=== PATIENT | male | born 1990 | race Caucasian/White ===

== ENCOUNTER 2023-04-25 09:19 | Inpatient (IN) ==
[2023-04-25 10:28] LABS: Basophils # (auto) 0.04 K/uL (0.00-0.20); Basophils % (auto) 0.4 %; Eosinophils # (auto) 0.07 K/uL (0.00-0.50); Eosinophils % (auto) 0.8 %; Hematocrit (blood only) 43.8 % (42.0-52.0); Immature Granulocytes # (auto) 0.02 K/uL (0.01-0.20); Immature Granulocytes % (auto) 0.2 %; Lymphocytes # (auto) 0.78 K/uL (1.20-3.40); Lymphocytes % (auto) 8.6 %; Mean Corpuscular Hemoglobin 32.3 pg (25.0-34.0); Mean Corpuscular Hgb Conc 34.2 g/dL (32.0-36.0); Mean Corpuscular Volume 94.4 fL (80.0-100.0); Mean Platelet Volume 10.2 fL (9.4-12.4); Monocytes # (auto) 0.77 K/uL (0.11-0.59); Monocytes % (auto) 8.4 %; Neutrophils # (auto) 7.44 K/uL (1.40-6.50); Neutrophils % (auto) 81.6 %; Platelet Count 285 K/uL (130-400); RDW Coefficient of Variation 12.1 % (11.5-14.5); Red Blood Count 4.64 M/uL (4.70-6.10); White Blood Count 9.12 K/ul (4.8-10.8)
[2023-04-25] MEDS ORDERED: ACETAMINOPHEN 1,000 MG/100 ML VIAL IV STA (10:30)
[2023-04-25] MEDS ORDERED: SODIUM CHLORIDE 0.9% 1,000 ML IV ONE (10:30)
[2023-04-25] MEDS ORDERED: KETOROLAC TROMETHAMINE 15 MG/ML VIAL IV STA (10:30)
[2023-04-25 10:55] LABS: Appearance Urine Clear (Clear); Bilirubin Urine Negative (Negative); Blood Urine Negative (Negative); Color Urine Yellow; Glucose Urine UA Negative (Negative); Ketones Urine Negative (Negative); Leukocyte Esterase Urine Negative (Negative); Nitrite Urine Negative (Negative); Protein Urine Negative (Negative); Specific Gravity Urine 1.021 (1.000-1.030); Urobilinogen Urine Negative (Negative)
[2023-04-25 10:55] LABS: Albumin Globulin Ratio 1.6 (0.9-2); Albumin Level 4.5 gm/dl (3.4-5.0); BUN Creatinine Ratio 10.8 (10-20); Bilirubin,Total 0.6 mg/dl (0.2-1.0); Calcium 9.5 mg/dl (8.6-10.3); Creatinine Clr Calc Pharmacy 95.9 ml/min; Est GFR (African American) 99.2 ml/min; Est GFR (Non-African American) 85.6 ml/min; Globulin 2.9 gm/dl (2.5-4.0); Potassium 4.1 mmol/L (3.5-5.1); Total Protein 7.4 gm/dl (6.0-8.3)
[2023-04-25] MEDS ORDERED: OPTIRAY 320 100ml IV ONE (12:22)
--- NOTE | 2023-04-25 12:34 | CT Scan Report ---
CT SCAN OF THE ABDOMEN AND PELVIS WITH IV CONTRAST CLINICAL HISTORY: Left lower quadrant abdominal pain COMPARISON STUDY: No priors. TECHNIQUE: Following the IV administration of 93 cc of Optiray 320, CT scan of the abdomen and pelvi s is performed from the lung bases to the proximal femora. Images are reviewed in the axial, sagittal , and coronal planes. IV contrast was administered without complication. A dose lowering technique wa s utilized adhering to the principles of ALARA. CT DOSE: 1076.48 mGy.cm FINDINGS: Lung bases: The heart is normal in size and without pericardial effusion. There is trace right pleura l effusion and dependent atelectasis. There is a small hiatal hernia. Liver: The contrast-enhanced liver is normal in size, contour, and attenuation. There is no intrahepa tic biliary ductal dilatation. The hepatic veins and portal veins are patent. Gallbladder: Surgically absent noting clips in the gallbladder fossa. Spleen: Normal in size and attenuation. Pancreas: Unremarkable. Adrenal glands: Unremarkable. Kidneys: The contrast enhanced kidneys are normal in size and without hydronephrosis. The kidneys enh ance symmetrically. Abdominal vasculature: The abdominal aorta is normal in course and caliber. Bowel: There is mild to moderate colonic diverticulosis. There is wall thickening with pericolonic in flammation and fluid involving mid to distal descending colon consistent with acute diverticulitis. T here are tiny foci of intraperitoneal free air adjacent to the descending colon at this site. No orga nized/drainable fluid collection is seen to indicate abscess. No bowel obstruction is seen. The appen gt is not identified and reported surgically absent. Peritoneum: There are tiny foci of intraperitoneal free air adjacent to the left colon as discussed a yonathan. No additional foci of free air are seen below the diaphragm. There is trace free fluid in the p gregg. There is a fat-containing umbilical hernia. Lymphadenopathy: None. Pelvic viscera: The bladder, prostate, and seminal vesicles are normal as visualized. Skeletal structures: No lytic or blastic lesions are seen. IMPRESSION: 1. Acute diverticulitis of the mid to distal descending colon as above. 2. There are tiny foci of intraperitoneal free air adjacent to the descending colon. No organized/heron inable fluid collection is seen to indicate abscess. 3. Trace right pleural effusion. 4. Additional findings as above. ACT 112: Negative or not required by law. Electronically signed by: Manuel Oviedo M.D. 04/25/2023 12:32 PM
[2023-04-25] MEDS ORDERED: MoRPHine SULFATE 4 MG/ML 1 ML CARP\\VIAL IV STA (12:39)
[2023-04-25] MEDS ORDERED: ONDANSETRON INJ 2 MG/ML 2 ML VIAL IV STA (12:39)
[2023-04-25] MEDS ORDERED: PIPERACILLIN/TAZOBACTAM 4.5 GM/100 ML BAG IV ONE (12:40)
--- NOTE | 2023-04-25 12:40 | Emergency Department Note ---
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 He reports he was doing well since then until today. He denies any fevers, cough, congestion, diarrhea, constipation or urinary symptoms. On my evaluation the patient is no acute distress, afebrile with stable vital signs. He does have mild tenderness of the left lower quadrant. There is no contralateral tenderness, guarding or rebound. WBC, within normal limits with neutrophil predominance but no left shift. H/H and platelets within normal limits. Chemistry without metabolic acidosis. Electrolytes without significant abnormality. LFTs mildly elevated with AST and ALT 70 and 89, respectively, nonspecific though the patient feels he may have had this in the past. Lipase not elevated. UA without evidence of infection. CT of the abdomen pelvis demonstrates evidence of diverticulitis with wall thickening with pericolonic inflammation and fluid involving the mid to distal descending colon consistent with acute diverticulitis. Note is made of a tiny foci of intraperitoneal free air adjacent to the descending colon at the site. There is no organized drainable fluid collection to indicate abscess. There is no additional foci of free air seen below the diaphragm. Trace free fluid is seen within the pelvis. The signs were described to the patient and he feels that this was similarly described when he was admitted to [facility] after initially presenting to [place] emergency department. Given the persistence of the patient diverticulitis in the setting of recurrence of his pain patient agrees with plan for admission for IV antibiotics. Case discussed with Victoria Mercer general surgery ACADEMIC AFFAIRS COORDINATOR with Dr. Peterson, general surgery. Agrees with admission and IV ABX. Case was discussed with Dr. Stanley, [facility] hospitalist, who will evaluate the patient for admission. Triage Nursing notes reviewed and agree them. Prior/external medical records reviewed Vital Signs: reviewed Differential diagnosis: Appendicitis, testicular torsion, infections, diverticulitis, UTI, obstruction, mesenteric ischemia, aortic pathology, inflammatory bowel disease, renal colic, PUD, pancreatitis, biliary pathology, hernia, volvulus, constipation, as well as other pathologies. ER treatment provided: See below. Diagnostics interpreted by me: Cardiac Monitoring: An order for continuous cardiac monitoring was placed and demonstrated normal sinus rhythm, 70 bpm, no ectopy. Laboratory studies: See below Imaging studies: See below Consultation(s): Case was discussed with Dr. Stanley, [facility] hospitalist, who will evaluate the patient for admission. 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 He reports he was doing well since then until today. He denies any fevers, cough, congestion, diarrhea, constipation or urinary symptoms. ROS: See above HPI for pertinent positives & negatives. A total of 10 systems reviewed and were otherwise negative. VITALS:See Below PHYSICAL EXAMINATION: GENERAL: Awake, alert, well-appearing, in no distress HENT: Normocephalic, atraumatic. Oropharynx with dry mucous membranes and otherwise unremarkable. EYES: Normal conjunctiva. Sclera non-icteric. NECK: Supple. No nuchal rigidity. FROM. No JVD. RESPIRATORY: Clear to auscultation. CARDIAC: Regular rate, normal rhythm. Extremities warm and well perfused. Pulses equal. ABDOMEN: Soft, non-distended. Mild tenderness of the left lower quadrant. There is no contralateral tenderness, guarding or rebound. RECTAL: Deferred. MUSCULOSKELETAL: Chest examination reveals no tenderness. The back is symmetrical on inspection without obvious abnormality. There is no CVA tenderness to palpation. No joint edema. LOWER EXTREMITIES: Calves are equal size bilaterally and non-tender. No edema. No discoloration. NEURO: Normal sensorium. No sensory or motor deficits noted. SKIN: No rash or jaundice noted. Boston Mcknight MD Past Med/Surg History Medical History Bowel obstruction As as child with surgical correction per patient. 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 No significant medical problems Surgical History History of appendectomy History of cholecystectomy Family History Other Family history non-contributory Social History Smoking Status: Current every day smoker Tobacco Type: Smokeless Tobacco (Dip or Chew) Smoking End Date: 04/25/2023 0700h; Second Hand Exposure: No; Do You Dip or Chew Tobacco: Yes; Tobacco Cessation Education Requested by Patient: Yes Hx Alcohol Use: Yes Alcohol type: beer Hx Substance Use: Yes Last Used Substance: Unknown Preferred Language: Turkmen Communication Ability: Effective Visual Impairment: No Limitations Hearing Ability: Normal Beliefs That Will Affect Care: None Current Living Situation: Family current occupational status: employed Feels Safe at Home: Yes Safety Concerns: Feels Safe At This Time Assistive Devices: None Allergies Allergies Allergy/AdvReac Type Severity Reaction Status Date / Time No Known Allergies Allergy Unverified 11/20/17 15:41 Home Meds Home Medications Medication Instructions Recorded Confirmed No Known Home Medications 04/25/23 04/25/23 Results & Data (ED) Vital Signs Vital Signs - 24 hr 04/25/23 09:30 04/25/23 10:15 04/25/23 10:16 Temperature 36.8 C Temperature Source Temporal Artery Scan Pulse Rate 97 H 85 Pulse Rate [Right Finger] 79 Pulse Rhythm [Right Finger] Pulse Strength [Right Finger] Respiratory Rate 16 20 Respiratory Effort / Characteristics Non-Labored Spontaneous Respiratory Depth Normal Normal Blood Pressure 126/74 Blood Pressure [Right Arm] 119/84 Blood Pressure Mean 91 Blood Pressure Mean [Right Arm] 95 Pulse Oximetry 99 96 Oxygen Delivery Method Room Air Room Air Sepsis Recent Fever Within 48 Hours No Sepsis New/Unexplained Change in Mental Status No Sepsis Action Taken by Nursing No Action Required 04/25/23 11:34 04/25/23 13:02 04/25/23 14:24 Temperature Temperature Source Pulse Rate 61 Pulse Rate [Right Finger] 64 72 Pulse Rhythm [Right Finger] Regular Regular Pulse Strength [Right Finger] Normal Normal Respiratory Rate 17 19 Respiratory Effort / Characteristics Non-Labored Spontaneous Non-Labored Spontaneous Respiratory Depth Normal Normal Blood Pressure Blood Pressure [Right Arm] 115/70 120/80 Blood Pressure Mean Blood Pressure Mean [Right Arm] 85 93 Pulse Oximetry 99 97 Oxygen Delivery Method Room Air Room Air Sepsis Recent Fever Within 48 Hours Sepsis New/Unexplained Change in Mental Status Sepsis Action Taken by Nursing Laboratory Data Attestation: I reviewed the patient's lab results. 04/25/23 09:58 04/25/23 09:58 Lab Results 04/25/23 04/25/23 04/25/23 Range/Units 09:58 09:58 10:45 WBC 9.12 (4.8-10.8) K/ul RBC 4.64 L (4.70-6.10) M/uL Hgb 15.0 (14.0-18.0) g/dl Hct 43.8 (42.0-52.0) % MCV 94.4 (80.0-100.0) fL MCH 32.3 (25.0-34.0) pg MCHC 34.2 (32.0-36.0) g/dL RDW Std Deviation 42.0 (36.4-46.3) fL RDW Coeff of Chastity 12.1 (11.5-14.5) % Plt Count 285 (130-400) K/uL MPV 10.2 (9.4-12.4) fL Immature Gran % (Auto) 0.2 % Neut % (Auto) 81.6 % Lymph % (Auto) 8.6 % [place] % (Auto) 8.4 % Eos % (Auto) 0.8 % Baso % (Auto) 0.4 % Neut # (Auto) 7.44 H (1.40-6.50) K/uL Lymph # (Auto) 0.78 L (1.20-3.40) K/uL [place] # (Auto) 0.77 H (0.11-0.59) K/uL Eos # (Auto) 0.07 (0.00-0.50) K/uL Baso # (Auto) 0.04 (0.00-0.20) K/uL Immature Gran # (Auto) 0.02 (0.01-0.20) K/uL Sodium 140 (136-145) mmol/L Potassium 4.1 (3.5-5.1) mmol/L Chloride 107 (98-107) mmol/L Carbon Dioxide 26 (21-32) mmol/L Anion Gap 7 (3-11) BUN 12 (6-23) mg/dl Creatinine 1.11 (0.6-1.4) mg/dl Est Cr Clr Drug Dosing 95.9 ml/min Est GFR ( Amer) 99.2 ml/min Est GFR (Non-Af Amer) 85.6 ml/min BUN/Creatinine Ratio 10.8 (10-20) Glucose 110 H (70-99(Fasting)) mg/dl Calcium 9.5 (8.6-10.3) mg/dl Total Bilirubin 0.6 (0.2-1.0) mg/dl AST 70 H (13-39) U/L ALT 89 H (7-52) U/L Alkaline Phosphatase 101 (34-104) U/L Total Protein 7.4 (6.0-8.3) gm/dl Albumin 4.5 (3.4-5.0) gm/dl Globulin 2.9 (2.5-4.0) gm/dl Albumin/Globulin Ratio 1.6 (0.9-2) Lipase 17 (11-82) U/L Urine Color Yellow Urine Appearance Clear (Clear) Urine pH 5.0 (4.5-7.5) Ur Specific [place] 1.021 (1.000-1.030) Urine Protein Negative (Negative) Urine Glucose (UA) Negative (Negative) Urine Ketones Negative (Negative) Urine Blood Negative (Negative) Urine Nitrite Negative (Negative) Urine Bilirubin Negative (Negative) Urine Urobilinogen Negative (Negative) Ur Leukocyte Esterase Negative (Negative) Administered Medications Hydromorphone HCl (Hydromorphone Inj 0.5 Mg/0.5 Ml Syr) 0.5 mg IV Q3H PRN PRN Reason: Moderate Pain (4,5,6) on NRS Stop: 05/09/23 14:27 Last Admin: 04/25/23 15:02 Dose: 0.5 mg Documented By: DOROTHEA Hydromorphone HCl (Hydromorphone Inj 1 Mg/Ml Syringe) 1 mg IV Q3H PRN PRN Reason: Severe Pain (7,8,9,10) on NRS Stop: 05/09/23 14:27 Last Admin: 04/25/23 23:06 Dose: 1 mg Documented By: Admin: 04/25/23 19:03 Dose: 1 mg Documented By: REGGIE Piperacillin Sod/Tazobactam (Sod 4.5 gm/ Dextrose) 100 mls @ 25 mls/hr IV Q8H MITRA; Protocol Stop: 05/05/23 17:59 Last Infusion: 04/25/23 21:52 Dose: 0 mls/hr Documented By: Admin: 04/25/23 18:22 Dose: 25 mls/hr Documented By: Lactated Ringer's (Lr) 1,000 mls @ 125 mls/hr IV .Q8H MITRA Stop: 05/25/23 14:29 Last Admin: 04/25/23 23:07 Dose: 125 mls/hr Documented By: Infusion: 04/25/23 23:05 Dose: 0 mls/hr Documented By: Admin: 04/25/23 14:59 Dose: 125 mls/hr Documented By: DOROTHEA Nicotine (Nicotine 21 Mg/24 Hr Tdsy) 21 mg TD QAM MITRA Stop: 05/25/23 18:44 Last Admin: 04/25/23 19:40 Dose: 21 mg Documented By: LIZETTE Discontinued Medications Sodium Chloride (Nss) 1,000 mls @ 999 mls/hr IV .Q1H1M ONE Stop: 04/25/23 11:30 Last Infusion: 04/25/23 12:00 Dose: 0 mls/hr Documented By: Admin: 04/25/23 10:43 Dose: 999 mls/hr Documented By: CARISA Acetaminophen (Ofirmev) 1,000 mg in 100 mls @ 400 mls/hr IV NOW STA Stop: 04/25/23 10:44 Last Infusion: 04/25/23 12:00 Dose: 0 mls/hr Documented By: Admin: 04/25/23 10:44 Dose: 400 mls/hr Documented By: CARISA Piperacillin Sod/Tazobactam Sod (Zosyn) 4.5 gm in 100 mls @ 200 mls/hr IV NOW ONE Stop: 04/25/23 13:09 Last Infusion: 04/25/23 15:26 Dose: 0 mls/hr Documented By: Admin: 04/25/23 13:02 Dose: 200 mls/hr Documented By: DOROTHEA Sodium Chloride (Nss) 1,000 mls @ 125 mls/hr IV .Q8H MITRA Stop: 05/25/23 12:44 Last Infusion: 04/25/23 19:02 Dose: 0 mls/hr Documented By: Infusion: 04/25/23 14:59 Dose: 125 mls/hr Documented By: Admin: 04/25/23 13:00 Dose: 125 mls/hr Documented By: DOROTHEA Ioversol (Optiray 320 100ml) 93 ml IV ONCE ONE Stop: 04/25/23 12:23 Last Admin: 04/25/23 12:23 Dose: 93 ml Documented By: SARAH BETH Ketorolac Tromethamine (Ketorolac Tromethamine 15 Mg/Ml Vial) 15 mg IV NOW STA Stop: 04/25/23 10:31 Last Admin: 04/25/23 10:43 Dose: 15 mg Documented By: CARISA Morphine Sulfate (Morphine Sulfate 4 Mg/Ml 1 Ml Carp\Vial) 4 mg IV NOW STA Stop: 04/25/23 12:40 Last Admin: 04/25/23 12:57 Dose: 4 mg Documented By: DOROTHEA Ondansetron HCl (Ondansetron Inj 2 Mg/Ml 2 Ml Vial) 4 mg IV NOW STA Stop: 04/25/23 12:40 Last Admin: 04/25/23 12:56 Dose: 4 mg Documented By: DOROTHEA Imaging Data Radiologist's Impression: Abdomen/Pelvis CT 04/25/23 10:30 CT SCAN OF THE ABDOMEN AND PELVIS WITH IV CONTRAST CLINICAL HISTORY: Left lower quadrant abdominal pain COMPARISON STUDY: No priors. TECHNIQUE: Following the IV administration of 93 cc of Optiray 320, CT scan of the abdomen and pelvis is performed from the lung bases to the proximal femora. Images are reviewed in the axial, sagittal, and coronal planes. IV contrast was administered without complication. A dose lowering technique was utilized adhering to the principles of ALARA. CT DOSE: 1076.48 mGy.cm FINDINGS: Lung bases: The heart is normal in size and without pericardial effusion. There is trace right pleural effusion and dependent atelectasis. There is a small hiatal hernia. Liver: The contrast-enhanced liver is normal in size, contour, and attenuation. There is no intrahepatic biliary ductal dilatation. The hepatic veins and portal veins are patent. Gallbladder: Surgically absent noting clips in the gallbladder fossa. Spleen: Normal in size and attenuation. Pancreas: Unremarkable. Adrenal glands: Unremarkable. Kidneys: The contrast enhanced kidneys are normal in size and without hydronephrosis. The kidneys enhance symmetrically. Abdominal vasculature: The abdominal aorta is normal in course and caliber. Bowel: There is mild to moderate colonic diverticulosis. There is wall thickening with pericolonic inflammation and fluid involving mid to distal descending colon consistent with acute diverticulitis. There are tiny foci of intraperitoneal free air adjacent to the descending colon at this site. No organized/drainable fluid collection is seen to indicate abscess. No bowel obstruction is seen. The appendix is not identified and reported surgically absent. Peritoneum: There are tiny foci of intraperitoneal free air adjacent to the left colon as discussed above. No additional foci of free air are seen below the diaphragm. There is trace free fluid in the pelvis. There is a fat-containing umbilical hernia. Lymphadenopathy: None. Pelvic viscera: The bladder, prostate, and seminal vesicles are normal as visualized. Skeletal structures: No lytic or blastic lesions are seen. IMPRESSION: 1. Acute diverticulitis of the mid to distal descending colon as above. 2. There are tiny foci of intraperitoneal free air adjacent to the descending colon. No organized/drainable fluid collection is seen to indicate abscess. 3. Trace right pleural effusion. 4. Additional findings as above. ACT 112: Negative or not required by law. Electronically signed by: Manuel Oviedo M.D. 04/25/2023 12:32 PM Discharge Plan Visit Data Chief Complaint: Abdominal Pain Stated Complaint: POSSIBLE DIVERTICULITIS ED Provider: Boston Mcknight Discharge Problem: Left lower quadrant abdominal pain, Transaminitis, Diverticulitis of colon with perforation Patient Disposition: Admitted As Inpatient Discharge Instructions Interventions: ED Discharge Assessment Last Done: 04/25/23 18:30
[2023-04-25] MEDS ORDERED: SODIUM CHLORIDE 0.9% 1,000 ML IV SCH (12:45)
--- NOTE | 2023-04-25 13:46 | History & Physical Report ---
Date of Service April 25, 2023 Assessment & Plan (1) Diverticulitis: Plan: Acute recurrent/incompletely treated diverticulitis with microperforation Patient treated at [facility] for diverticulitis 2 weeks ago, was on Zosyn for 2 days and clinically improved and then was discharged on Levaquin/Flagyl. His symptoms completely resolved and he completed a 10-day course of antibiotics, and then had recurrent left lower quadrant abdominal pain day before admission with increased pain to 8/10 which is more severe than his initial CT shows acute diverticulitis with small foci ipsilateral gas consistent with microperforation No leukocytosis on admission Continue Zosyn 4.5 g every 8 hours N.p.o. Patient does not have contralateral gas, large perforation, or abscess indicating surgical management at this time. Surgery aware of patient, okay for medical management at this He has past abdominal surgical history, had a volvulus repair during childhood and 8 years ago had a lysis of adhesions for pain; he did not have a bowel obstruction that led to his lysis. Additionally has had cholecystectomy and appendectomy. He is high risk for bowel obstruction, and both BM/flatus have stopped since yesterday afternoon. No bowel obstruction is noted on CT, morning KUB ordered for tomorrow to follow for ileus vs developing sbo. NPO. No nausea/vomiting CBC/BMP daily Nontoxic, hemodynamically stable on admission Tylenol, hydromorphone on-call for pain control. Transaminitis is mild, if up trends discontinue Tylenol (2) Transaminitis: Plan: Mild transaminitis of 70/89 Patient has 2 beers per day, did have a drink yesterday. Denies any binge drinking Denies any Tylenol use in the last 1-2 weeks Liver is normal in appearance on CT ? 2/2 Levaquin, fluoroquinolones deferred. We will continue Zosyn and target Augmentin as stepdown to Trend CMP (3) History of appendectomy: (4) History of cholecystectomy: Plan DVT prophylaxis: Low risk, SCDs/ambulate Diet: N.p.o. Disposition: Medical/surgical CODE STATUS: Full History of Present Illness Primary Care Provider: NO PCP Blu is a 33-year-old man with a past medical history of SBO as a child, and recently with diverticulitis treated in [facility] 1 week ago after 2-day inpatient stay with microperforation and subsequently discharged on oral antibiotics. Record review Repeat abdominal CT shows acute diverticulitis of mid to distal descending colon , tiny foci of intraperitoneal free air adjacent to the descending colon. This is/normal/at site of diverticulitis consistent with microperforation; patient reports this was present at [facility]. No contralateral free air or abscess is appreciated. Patient was prescribed levofloxacin and Flagyl 10-day course on 04/07 which was completed 04/17 Transaminitis with normal-appearing liver on CT. Patient's only medication was antibiotics Levaquin/Flagyl. Will defer fluoroquinolone use due to rare incidence of hepatotoxicity. Patient is normotensive and presentation is not consistent with endorgan ischemia. Per patient Pt reports 2-3 weeks ago had abdominal pain, was seein in [place] and then admitting to [facility] for diverticulitis with perforatin. Was dc/ed after 2 days with oral antibiotics. Took all abx as direct. N oabx allergies Last night pain recurrent, tried to go to work today and pain was much worse than last time and came in for re-evaluatin. No fevers, chills. 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 No nausea or vomiting NO chest pain or chest pressure. Currently abdominal pain is ~7-8/10 after morphine, was morphine earlier brought it down to a 4-5 from a 9 earlier this morning. NO pain at all 2 days ago, pain all started last night Last bowel movement was yesterday. No blood/melena. Formed/brown +Feeling of strong gas pain in low abdomen, has not been passing gas since yesterday. Last BM was ~12-1pm yesterday, flatus ~3pm then stopped. MEdHx/SHX: Endorses hx of bowel obstruction as a kid due to a 'bowel twisting.' Had surgery which corrected this at age 11. Then did nto remove any bowel 'just untwisted it' and took out the appendix and gallbladder. Procedure was performed at [facility]. 8 years ago had to have lysis of adhesions due to pain without SBO, gallbladder was removed at that time as well. Current pain is very different than either of those prior pains, and worse in intensity No other surgeries. No other medical problems No daily medicatins Has nto taken any OTC medicatins for pain EtoH 1-2 beers per day, 2x drinks last night. Denies binge drinking. Hasn't seen a PCP recently. Saw Nancy Willett in [place] several years ago, needs to re-establish. Medical History: Reviewed Medications: Reviewed Surgical History: Reviewed Family history: Reviewed Allergies: Reviewed Social History: Reviewed. ETOH 2 beer daily. Uses chew. Has been eatin ga lot of sunflower seeds to quit chew. Code Status: Full Code Allergies Allergy/AdvReac Type Severity Reaction Status Date / Time No Known Allergies Allergy Unverified 11/20/17 15:41 Home Medications Medication Instructions Recorded Confirmed Type No Known Home Medications 04/25/23 04/25/23 History Past Med/Surg History Medical History (Updated 04/25/23 @ 14:39 by Rocael Stanley MD) Bowel obstruction As as child with surgical correction per patient. 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 No significant medical problems Surgical History (Updated 04/25/23 @ 14:36 by Rocael Stanley MD) History of appendectomy History of cholecystectomy Family History Other Family history non-contributory Social History (Updated 04/25/23 @ 14:32 by Rocael Stanley MD) Smoking Status: Never smoker Tobacco Type: Smokeless Tobacco (Dip or Chew) Preferred Language: Nicaraguan Communication Ability: Effective Visual Impairment: No Limitations Hearing Ability: Normal current occupational status: employed Feels Safe at Home: Yes Physical Exam Physical Exam: General: A&Ox3. NAD. Cooperative. HEENT: Atraumatic, normocephalic. Vision and hearing grossly intact. PERLAA. Pulm: CTAB A&P. -wheezes, -rales, -rhonchi. Symmetrical chest rise. No increased work of breathing. No respiratory distress. Cardiac: RRR, -mrg. Radial pulses intact and symmetrical. Abdominal: Focally tender to left lower quadrant palpation. No rebound. No right-sided tenderness. Bowel sounds diminished. Ext: warm, dry. Sensation and strength grossly Results & Data Results & Data Vital Signs (Past 12 Hours) Vital Signs Temp Pulse Pulse Resp BP BP Pulse Ox 04/25/23 13:02 72 19 120/80 97 04/25/23 11:34 64 17 115/70 99 04/25/23 10:16 79 20 119/84 96 04/25/23 10:15 85 04/25/23 09:30 36.8 C 97 H 16 126/74 99 O2 Del Method 04/25/23 13:02 Room Air 04/25/23 11:34 Room Air 04/25/23 10:16 Room Air 04/25/23 10:15 04/25/23 09:30 Room Air PG Care Time/CCT Total # of Minutes Spent Total Time Spent with Patient: Total time spent is greater than 50% in coordination of care (as documented) at patient's floor/unit and/or counseling patient: Coding Level of Care Code 70474 INT INP/OBS CARE 75MIN Diagnoses Diverticulitis K57.92 Transaminitis R74.01 History of appendectomy Z90.49 History of cholecystectomy Z90.49
[2023-04-25] MEDS ORDERED: HYDROmorphone INJ 0.5 MG/0.5 ML SYR IV PRN (14:28)
[2023-04-25] MEDS: LACTATED RINGER'S 1,000 ML IV SCH ×2 (14:59→23:07)
--- NOTE | 2023-04-25 15:27 | Surgery Consultation ---
Date of Consultation April 25, 2023 Assessment & Plan (1) Diverticulitis of colon with perforation: Patient is a 33 yo male with PMH of perforated Diverticulitis, SBO, that presented to the [facility] ER with C/O LLQ pain that started last night. He was hospitalized 10 days ago at [facility] [facility] and treated with IV antibiotics for two days for the perforated diverticulitis , than discharged home on oral antibiotics. He reports he was doing well up until last night when he started having pain again. Denies N/V, fever, chills. Rates pain a 8-9/10. Last BM yesterday. Has a surgical history of cholecystectomy, appendectomy, adhesion take down. On exam abdomen is non distended, TTP LLQ, with guarding WBC 9 CT scan reads IMPRESSION: 1. Acute diverticulitis of the mid to distal descending colon as above. 2. There are tiny foci of intraperitoneal free air adjacent to the descending colon. No organized/drainable fluid collection is seen to indicate abscess. 3. Trace right pleural effusion. 4. Additional findings as above. Admit to medicine Keep NPO IV fluids for hydration IV analgesic No acute surgical intervention at this time Will continue to monitor History of Present Illness Reason for Consultation: Perforated Diverticula Requesting Physician: Dr. Mcknight History of Present Illness Patient is a 33 yo male with PMH of perforated Diverticulitis, SBO, that presented to the [facility] ER with C/O LLQ pain that started last night. He was hospitalized 10 days ago at [facility] [facility] and treated with IV antibiotics for two days for the perforated diverticulitis , than discharged home on oral antibiotics. He reports he was doing well up until last night when he started having pain again. Denies N/V, fever, chills. Rates pain a 8-9/10. Last BM yesterday. Has a surgical history of cholecystectomy, appendectomy, adhesion take down. Allergies Allergy/AdvReac Type Severity Reaction Status Date / Time No Known Allergies Allergy Unverified 11/20/17 15:41 Home Medications Medication Instructions Recorded Confirmed Type No Known Home Medications 04/25/23 04/25/23 History Patient History Medical History Bowel obstruction As as child with surgical correction per patient. 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 No significant medical problems Surgical History History of appendectomy History of cholecystectomy Family History Other Family history non-contributory Social History Smoking Status: Current every day smoker Tobacco Type: Smokeless Tobacco (Dip or Chew) Smoking End Date: 04/25/2023 0700h; Second Hand Exposure: No; Do You Dip or Chew Tobacco: Yes; Tobacco Cessation Education Requested by Patient: Yes Hx Alcohol Use: Yes Alcohol type: beer Hx Substance Use: Yes Last Used Substance: Unknown Preferred Language: Latvian Communication Ability: Effective Visual Impairment: No Limitations Hearing Ability: Normal Beliefs That Will Affect Care: None Current Living Situation: Family current occupational status: employed Feels Safe at Home: Yes Safety Concerns: Feels Safe At This Time Assistive Devices: None Review of Systems Constitutional: no fever, no chills and no sweats Respiratory: no dyspnea Cardiovascular: no chest pain Gastrointestinal: + abdominal pain; no nausea and no vomiting Physical Exam Physical Exam: alert oriented Constitutional: well developed, cooperative and comfortable; no acute distress Respiratory: normal respiratory effort and able to speak in complete sentences; no respiratory distress Cardiovascular: Rate/Rhythm: regular rate Gastrointestinal (Abdomen): Inspection/Auscultation: abdomen not distended Percussion/Palpation: + abdomen tender, + guarding and abdomen soft Results & Data Vital Signs (Past 12 Hours) Vital Signs Temp Pulse Pulse Resp BP BP Pulse Ox 04/25/23 15:00 72 18 121/79 98 04/25/23 14:24 61 04/25/23 13:02 72 19 120/80 97 04/25/23 11:34 64 17 115/70 99 04/25/23 10:16 79 20 119/84 96 04/25/23 10:15 85 04/25/23 09:30 98.2 F 97 H 16 126/74 99 O2 Del Method 04/25/23 15:00 Room Air 04/25/23 14:24 04/25/23 13:02 Room Air 04/25/23 11:34 Room Air 04/25/23 10:16 Room Air 04/25/23 10:15 04/25/23 09:30 Room Air Diagnostic Findings [place], [place] [phone] CT Scan Report Patient:NY ENAMORADO JR Admit Date:04/25/23 MR#:[id number] Address1:[address] Acct ID:[id number] Address2: Date:1990 [facility] Zip:[place] [address] Age:33 Location:ED Sex:M Room/Bed: Att Phy: Diagnosis:POSSIBLE DIVERTICULITIS Tarsha Phy:PCP,NO Service Date:04/25/23 Fam Phy: Interpreting Phy:Manuel Oviedo MDAdmit Phy: Ordering Phy:Boston Mcknight M.D. cc: ~ CT SCAN OF THE ABDOMEN AND PELVIS WITH IV CONTRAST CLINICAL HISTORY: Left lower quadrant abdominal pain COMPARISON STUDY: No priors. TECHNIQUE: Following the IV administration of 93 cc of Optiray 320, CT scan of the abdomen and pelvis is performed from the lung bases to the proximal femora. Images are reviewed in the axial, sagittal, and coronal planes. IV contrast was administered without complication. A dose lowering technique was utilized adhering to the principles of ALARA. CT DOSE: 1076.48 mGy.cm FINDINGS: Lung bases: The heart is normal in size and without pericardial effusion. There is trace right pleural effusion and dependent atelectasis. There is a small hiatal hernia. Liver: The contrast-enhanced liver is normal in size, contour, and attenuation. There is no intrahepatic biliary ductal dilatation. The hepatic veins and portal veins are patent. Gallbladder: Surgically absent noting clips in the gallbladder fossa. Spleen: Normal in size and attenuation. Pancreas: Unremarkable. Adrenal glands: Unremarkable. Kidneys: The contrast enhanced kidneys are normal in size and without hydronephrosis. The kidneys enhance symmetrically. Abdominal vasculature: The abdominal aorta is normal in course and caliber. Bowel: There is mild to moderate colonic diverticulosis. There is wall thickening with pericolonic inflammation and fluid involving mid to distal descending colon consistent with acute diverticulitis. There are tiny foci of intraperitoneal free air adjacent to the descending colon at this site. No organized/drainable fluid collection is seen to indicate abscess. No bowel obstruction is seen. The appendix is not identified and reported surgically absent. Peritoneum: There are tiny foci of intraperitoneal free air adjacent to the left colon as discussed above. No additional foci of free air are seen below the diaphragm. There is trace free fluid in the pelvis. There is a fat-containing umbilical hernia. Lymphadenopathy: None. Pelvic viscera: The bladder, prostate, and seminal vesicles are normal as visualized. Skeletal structures: No lytic or blastic lesions are seen. IMPRESSION: 1. Acute diverticulitis of the mid to distal descending colon as above. 2. There are tiny foci of intraperitoneal free air adjacent to the descending colon. No organized/drainable fluid collection is seen to indicate abscess. 3. Trace right pleural effusion. 4. Additional findings as above. ACT 112: Negative or not required by law. Electronically signed by: Manuel Oviedo M.D. 04/25/2023 12:32 PM Dictated:04/25/23 1228 Transcribed: 04/25/23 1228 PG Care Time/CCT Total # of Minutes Spent Total Time Spent with Patient: Total time spent is greater than 50% in coordination of care (as documented) at patient's floor/unit and/or counseling patient: Coding Level of Care Code 70685 OFFICE CONSULT LVL Diagnoses Diverticulitis of colon with perforation K57.20
[2023-04-25] MEDS: PIPERACILLIN/TAZOBACTAM 4.5 GM in DEXTROSE 5% MINI-B 100 ML IV SCH (18:22)
[2023-04-25] MEDS ORDERED: ACETAMINOPHEN 1,000 MG/100 ML VIAL IV PRN (18:30)
[2023-04-25] MEDS ORDERED: NICOTINE POLACRILEX 2 MG GUM MT PRN (18:34)
[2023-04-25] MEDS: HYDROmorphone INJ 1 MG/ML SYRINGE IV PRN ×2 (19:03→23:06)
[2023-04-25] MEDS: NICOTINE 21 MG/24 HR TDSY TD SCH (19:40)
[2023-04-26] MEDS: PIPERACILLIN/TAZOBACTAM 4.5 GM in DEXTROSE 5% MINI-B 100 ML IV SCH (03:11)
--- NOTE | 2023-04-26 07:36 | Hospitalist Progress Note ---
Date of Service April 26, 2023 Assessment & Plan (1) Diverticulitis of colon with perforation: (2) Transaminitis: Plan Pt is a 33 yo male with no significant past medical history who presents to the hospital on 04/25 for increasing abd pain with recent hosp in [place] for div erticulitis. #Acute recurrent/incompletely treated diverticulitis with microperforation - pt recently at [place] for diverticulitis and tx with zosyn -> d/c'ed on Levaquin/Flagyl, now with abd pain since Monday CT shows acute diverticulitis with small foci ipsilateral gas consistent with microperforation - surg consult appreciated; no surg interventions at this time - pt NPO today, IV pain meds, will add diet tomorrow morning - will transition zosyn today to Unasyn, and if tolerating oral intake tomorrow will switch to Augmentin tomorrow evening #Transaminitis Mild transaminitis of 70/89, pt denies binge drinking behaviors or excessive tylenol use, liver appears wnl on CT - possibly reactive to active infection trend CMP daily DVT prophylaxis: Low risk, SCDs/ambulate Diet: N.p.o. CODE STATUS: Full Admission and Anticipated Discharge Date Admission Date: April 25, 2023 Supervising Physician Co-Signing Physician Notes Attending attestation Pt seen and examined in concert with Dr. Johnson. In agreement with the documented findings as noted in the resident documentation with any exceptions or additions as noted here. Reports LLQ pain is down to a 7/10 today and is adequately controlled on present pain medications. On examination, S1/S2 nl RRR no MCG. CTAB. Abd with guarding on examination with pain focused on LLQ. Acute complicated diverticulitis w/ microperforation - transition to unasyn, monitor BP. Daily CBC, CMP. IV pain control w/ dilaudid, ketorolac. Transaminitis - trend to resolution, hepatitis panel w/ escalation. Else see resident documentation as noted. Subjective Pt is a 33 yo male with no significant past medical history who presents to the hospital on 04/25 for increasing abd pain with recent hosp in [place] for diverticulitis. Pt states that he is feeling well today. He states that he was recently at [place] for diverticulitis and they discharged him on antibiotics without surgical intervention, then Monday night he started to get LLQ abdominal pain again that was increasingly worse. He states it mostly hurts today with change in position and if palpated. He states he has not had nausea or vomiting or fever or chills. He denies blood in the stool or urine. Had a BM last night and has been passing gas.He does note he had a "twisted gut" when he was in 7th grade that was surgically "untwisted" without any bowel resection. No further questions or concerns at this time. Review of Systems Review of Systems: Constitutional: denies fever, chills, Cardio: denies chest pain, Resp: denies shortness of breath, GI: nausea, vomiting, Physical Exam Physical Exam: General:Alert and oriented, no acute distress, HEENT: Normocephalic, moist oral mucosa, Cardio: Regular rate and rhythm, no murmur, Resp:Lungs clear to auscultation b/l, no wheezes or rhonchi, GI: Soft, nondistended, bowel sounds active, LLQ exquisitely tender to palpation Skin: Warm, pink, dry, Psych: Mood-affect congruence. Results & Data Results & Data Vital Signs (Past 12 Hours) Vital Signs Temp Pulse Resp BP Pulse Ox O2 Del Method 04/25/23 22:31 36.8 C 70 18 129/72 97 Room Air Resident Activity Tracking Resident Involvement: Resident Care Provided Care Provided: Adult Hospital Medicine
[2023-04-26] MEDS: LACTATED RINGER'S 1,000 ML IV SCH ×3 (08:09→23:56)
[2023-04-26] MEDS: HYDROmorphone INJ 1 MG/ML SYRINGE IV PRN ×5 (08:15→22:15)
[2023-04-26 08:30] LABS: BUN Creatinine Ratio 8.5 (10-20); Calcium 8.8 mg/dl (8.6-10.3); Creatinine Clr Calc Pharmacy 90.2 ml/min; Est GFR (African American) 92.1 ml/min; Est GFR (Non-African American) 79.5 ml/min; Potassium 4.1 mmol/L (3.5-5.1)
[2023-04-26 08:33] LABS: Basophils # (auto) 0.06 K/uL (0.00-0.20); Basophils % (auto) 0.8 %; Eosinophils # (auto) 0.15 K/uL (0.00-0.50); Hematocrit (blood only) 38.7 % (42.0-52.0); Hemoglobin 13.4 g/dl (14.0-18.0); Immature Granulocytes # (auto) 0.02 K/uL (0.01-0.20); Immature Granulocytes % (auto) 0.3 %; Lymphocytes # (auto) 0.78 K/uL (1.20-3.40); Lymphocytes % (auto) 10.4 %; Mean Corpuscular Hemoglobin 32.7 pg (25.0-34.0); Mean Corpuscular Hgb Conc 34.6 g/dL (32.0-36.0); Mean Corpuscular Volume 94.4 fL (80.0-100.0); Mean Platelet Volume 10.2 fL (9.4-12.4); Monocytes # (auto) 0.66 K/uL (0.11-0.59); Monocytes % (auto) 8.8 %; Neutrophils # (auto) 5.82 K/uL (1.40-6.50); Neutrophils % (auto) 77.7 %; Platelet Count 238 K/uL (130-400); RDW Coefficient of Variation 12.3 % (11.5-14.5); RDW Standard Deviation 43.1 fL (36.4-46.3); White Blood Count 7.49 K/ul (4.8-10.8)
[2023-04-26] MEDS ORDERED: ACETAMINOPHEN 1,000 MG/100 ML VIAL IV PRN (09:38)
[2023-04-26] MEDS: NICOTINE 21 MG/24 HR TDSY TD SCH (09:55)
[2023-04-26] MEDS ORDERED: AMPICILLIN SOD/SULBACTAM SOD 3 GM VIAL IV SCH (10:15)
[2023-04-26] MEDS: AMPICILLIN/SULBACTAM SOD 3,000 MG in SODIUM CHLOR 0.9% MINI-B 100 ML IV SCH ×3 (10:35→21:35)
--- NOTE | 2023-04-26 12:08 | Surgery Progress Note ---
Date of Service April 26, 2023 Assessment & Plan (1) Diverticulitis of colon with perforation: Plan: Continue conservative management. Keep NPO. IV fluids and IV antibiotics. Vital signs are stable. He does not have leukocytosis. No indication for urgent or emergent surgical intervention at this time. We will continue to follow along. I will be going out of town. Dr. Barriga will take over care starting tomorrow. Admission and Anticipated Discharge Date Admission Date: April 25, 2023 Subjective Patient seen. Slightly improved since admission but still having considerable discomfort. Physical Exam Constitutional: WD/WN, vitals as above no acute distress and not ill appearing Eyes: PERRL, conjunctivae normal, anicteric sclerae EOM intact bilaterally ENMT: external ear and nose normal, oropharynx normal Ears: no hearing impairment Neck: trachea midline, no thyromegaly Respiratory: normal respiratory effort; no respiratory distress and does not use accessory muscles Cardiovascular: Rate/Rhythm: regular rate and regular rhythm Gastrointestinal (Abdomen): Soft. Positive left lower quadrant suprapubic tenderness. No peritonitis Skin: no rashes, warm and dry Psychiatric: Orientation: alert, oriented x 3 and cooperative Results & Data Vital Signs (Past 12 Hours) Vital Signs Temp Pulse Resp BP Pulse Ox O2 Del Method 04/26/23 08:54 36.8 C 81 18 106/67 98 Room Air PG Care Time/CCT Total # of Minutes Spent Total Time Spent with Patient: Total time spent is greater than 50% in coordination of care (as documented) at patient's floor/unit and/or counseling patient: Coding Level of Care Code 07617 SUB INP/OBS CARE 2/35MIN Diagnoses Diverticulitis of colon with perforation K57.20
--- NOTE | 2023-04-26 17:47 | XRay Report ---
KUB CLINICAL HISTORY: Generalized abdominal pain. No acute diverticulitis. FINDINGS: 2 AP, portable, supine abdominal radiographs are correlated with abdominal CT dated 023. There is a nonobstructive abdominal bowel gas pattern. No evidence of intraperitoneal free air i s seen on these supine images. Cholecystectomy clips are noted in the right upper quadrant. There are no abnormal abdominal calcifications. The bony structures appear intact. IMPRESSION: No acute abnormality is identified. Electronically signed by: Manuel Oviedo M.D. 04/26/2023 5:46 PM
[2023-04-26] MEDS: KETOROLAC TROMETHAMINE 15 MG/ML VIAL IV PRN (20:36)
[2023-04-27] MEDS: HYDROmorphone INJ 1 MG/ML SYRINGE IV PRN ×5 (01:16→23:02)
[2023-04-27] MEDS: AMPICILLIN/SULBACTAM SOD 3,000 MG in SODIUM CHLOR 0.9% MINI-B 100 ML IV SCH ×4 (04:15→22:07)
[2023-04-27] MEDS: KETOROLAC TROMETHAMINE 15 MG/ML VIAL IV PRN ×3 (05:02→18:50)
--- NOTE | 2023-04-27 07:24 | Hospitalist Progress Note ---
Date of Service April 27, 2023 Assessment & Plan (1) Diverticulitis of colon with perforation: (2) Transaminitis: Plan Pt is a 33 yo male with no significant past medical history who presents to the hospital on 04/25 for increasing abd pain with recent hosp in [place] for diverticulitis. #Acute recurrent/incompletely treated diverticulitis with microperforation - pt recently at [place] for diverticulitis and tx with zosyn -> d/c'ed on Levaquin/Flagyl, now with abd pain since Monday CT shows acute diverticulitis with small foci ipsilateral gas consistent with microperforation - surg consult appreciated; no surg interventions at this time - pt NPO today, IV pain meds with scheduled tylenol - pt now on full liquids for lunch since he is tolerating diet - will maintain on Unasyn today since tenderness is the same, and if improved pain/tenderness will switch to Augmentin tomorrow #Transaminitis, improving Mild transaminitis of 70/89 on admission, pt denies binge drinking behaviors or excessive tylenol use, liver appears wnl on CT - possibly reactive to active infection trend CMP daily #Diarrhea - started this morning, nonbloody - will order stool studies, as pt recently on antibiotics DVT prophylaxis: Low risk, SCDs/ambulate Diet: N.p.o. CODE STATUS: Full Admission and Anticipated Discharge Date Admission Date: April 25, 2023 Supervising Physician Co-Signing Physician Notes Attending attestation Pt seen and examined in concert with Dr. oJhnson. In agreement with the documented findings as noted in the resident documentation with any exceptions or additions as noted here. Reports LLQ pain is minimally improved though tolerating clears well. On examination, S1/S2 nl RRR no MCG. CTAB. Abd with guarding on examination with pain focused on LLQ. Acute complicated diverticulitis w/ microperforation - will continue unasyn at this time and hold diet escalation until pain improves. Daily CBC, CMP. IV pain control w/ dilaudid, ketorolac. Transaminitis - trend to resolution, hepatitis panel w/ escalation. Else see resident documentation as noted. Subjective Pt is a 33 yo male with no significant past medical history who presents to the hospital on 04/25 for increasing abd pain with recent hosp in [place] for diverticulitis. Today, pt states he is about a 6/10 pain and was a 7/10 pain. Again notes that it is worse when he moves around. He states that he was able to tolerate clear liquids yesterday without nausea or vomiting and is still passing gas and having bowel movements without difficulty. He states that other than the pain, he feels well. No questions or complaints at this time. When seen later this morning he endorses several episodes of nonbloody diarrhea that is not malodorous and loud bowel sounds/gurgling. He denies cramps and otherwise feeling different. Review of Systems Review of Systems: Constitutional: denies fever, chills, Cardio: denies chest pain, Resp: denies shortness of breath, GI: nausea, vomiting, Physical Exam Physical Exam: General:Alert and oriented, no acute distress, HEENT: Normocephalic, moist oral mucosa, Cardio: Regular rate and rhythm, no murmur, Resp:Lungs clear to auscultation b/l, no wheezes or rhonchi, GI: Soft, nondistended, bowel sounds hyperactive, LLQ still exquisitely tender to palpation as much as yesterday Skin: Warm, pink, dry, Psych: Mood-affect congruence. Results & Data Results & Data Vital Signs (Past 12 Hours) Vital Signs Temp Pulse Resp BP Pulse Ox O2 Del Method 04/27/23 01:42 36.8 C 04/26/23 21:24 37.1 C 98 H 18 128/84 97 Room Air Resident Activity Tracking Resident Involvement: Resident Care Provided Care Provided: Adult Hospital Medicine
[2023-04-27 07:56] LABS: Basophils # (auto) 0.04 K/uL (0.00-0.20); Basophils % (auto) 0.6 %; Eosinophils # (auto) 0.22 K/uL (0.00-0.50); Eosinophils % (auto) 3.5 %; Hematocrit (blood only) 38.5 % (42.0-52.0); Hemoglobin 13.1 g/dl (14.0-18.0); Immature Granulocytes # (auto) 0.02 K/uL (0.01-0.20); Immature Granulocytes % (auto) 0.3 %; Lymphocytes # (auto) 0.83 K/uL (1.20-3.40); Lymphocytes % (auto) 13.3 %; Mean Corpuscular Hemoglobin 32.3 pg (25.0-34.0); Mean Corpuscular Volume 95.1 fL (80.0-100.0); Monocytes # (auto) 0.64 K/uL (0.11-0.59); Monocytes % (auto) 10.3 %; Neutrophils # (auto) 4.47 K/uL (1.40-6.50); Platelet Count 236 K/uL (130-400); RDW Coefficient of Variation 11.9 % (11.5-14.5); RDW Standard Deviation 41.7 fL (36.4-46.3); Red Blood Count 4.05 M/uL (4.70-6.10); White Blood Count 6.22 K/ul (4.8-10.8)
[2023-04-27 08:19] LABS: Albumin Globulin Ratio 1.3 (0.9-2); Albumin Level 3.5 gm/dl (3.4-5.0); BUN Creatinine Ratio 5.1 (10-20); Bilirubin,Total 0.6 mg/dl (0.2-1.0); Calcium 8.8 mg/dl (8.6-10.3); Creatinine Clr Calc Pharmacy 107.5 ml/min; Est GFR (African American) 113.9 ml/min; Est GFR (Non-African American) 98.3 ml/min; Globulin 2.7 gm/dl (2.5-4.0); Total Protein 6.2 gm/dl (6.0-8.3)
[2023-04-27] MEDS: LACTATED RINGER'S 1,000 ML IV SCH ×3 (08:29→23:01)
[2023-04-27] MEDS: NICOTINE 21 MG/24 HR TDSY TD SCH (08:29)
[2023-04-27 14:38] LABS: Cdiff Antigen Negative; Cdiff Toxin A+B Negative Cdiff Toxin (Negative); Cdiff Toxin B Gene (2yr or >) Positive Cdiff Gene (Neg)
--- NOTE | 2023-04-27 15:07 | Surgery Progress Note ---
Date of Service April 27, 2023 Assessment & Plan (1) Diverticulitis of colon with perforation: Plan: He remains without fever or leukocytosis Slowly improving Continue IV ABX Keep on clears today Will follow Admission and Anticipated Discharge Date Admission Date: April 25, 2023 Subjective Patient seen and examined. Still with 6 out of 10 left sided abdominal pain. Afebrile. Tolerating clears. Review of Systems Constitutional: no fever and no chills Physical Exam Constitutional: WD/WN, vitals as above Gastrointestinal (Abdomen): Inspection/Auscultation: abdomen normal to inspection; abdomen not distended Percussion/Palpation: + abdomen tender (left sided) and abdomen soft; no guarding and abdomen not rigid Results & Data Vital Signs (Past 12 Hours) Vital Signs Temp Pulse Resp BP Pulse Ox O2 Del Method 04/27/23 11:43 35.7 C L 75 12 124/82 97 Room Air 04/27/23 09:36 Room Air 04/27/23 08:05 36.6 C 77 18 127/86 95 Room Air 04/27/23 08:03 36.3 C L 71 12 117/74 97 Room Air PG Care Time/CCT Total # of Minutes Spent Total Time Spent with Patient: Total time spent is greater than 50% in coordination of care (as documented) at patient's floor/unit and/or counseling patient: Coding Level of Care Code 01743 SUB INP/OBS CARE 07/20MIN Diagnoses Diverticulitis of colon with perforation K57.20
[2023-04-27] MEDS: ACETAMINOPHEN 1,000 MG/100 ML VIAL IV SCH (17:24)
[2023-04-27] MEDS ORDERED: CHERRY SYRUP 5 ML UDP PO SCH (18:00)
[2023-04-27] MEDS ORDERED: VANCOMYCIN HCL 125 MG/2.5ML SOLN PO SCH (18:00)
[2023-04-28] MEDS: ACETAMINOPHEN 1,000 MG/100 ML VIAL IV SCH ×3 (01:59→17:32)
[2023-04-28] MEDS: AMPICILLIN/SULBACTAM SOD 3,000 MG in SODIUM CHLOR 0.9% MINI-B 100 ML IV SCH ×4 (04:19→21:32)
[2023-04-28] MEDS: HYDROmorphone INJ 1 MG/ML SYRINGE IV PRN ×3 (04:21→21:33)
--- NOTE | 2023-04-28 07:12 | Hospitalist Progress Note ---
Date of Service April 28, 2023 Assessment & Plan (1) Diverticulitis of colon with perforation: (2) Transaminitis: Plan Pt is a 33 yo male with no significant past medical history who presents to the hospital on 04/25 for increasing abd pain with recent hosp in [place] for diverticulitis. #Acute recurrent/incompletely treated diverticulitis with microperforation - pt recently at [place] for diverticulitis and tx with zosyn -> d/c'ed on Levaquin/Flagyl, now with abd pain since Monday CT shows acute diverticulitis with small foci ipsilateral gas consistent with microperforation - surg consult appreciated; no surg interventions at this time - pt NPO today, IV pain meds with scheduled tylenol - pt now on full liquids for lunch since he is tolerating diet - will maintain on Unasyn today since tenderness is the same, and if improved pain/tenderness will switch to Augmentin tomorrow #Transaminitis, improving Mild transaminitis of 70/89 on admission, pt denies binge drinking behaviors or excessive tylenol use, liver appears wnl on CT - likely reactive to active infection, as it continues to improve trend CMP daily #Diarrhea, resolved - started yesterday, nonbloody - c diff gene + but toxin negative - pt denies any diarrhea since yesterday DVT prophylaxis: Low risk, SCDs/ambulate Diet: N.p.o. CODE STATUS: Full Admission and Anticipated Discharge Date Admission Date: April 25, 2023 Supervising Physician Co-Signing Physician Notes ATTESTATION I also saw the patient and confirmed quiroz portions of the history and exam. I agree with the impression and plan in the resident documentation, and as summarized below. Upon our midmorning exam, the patient is semireclined in bed. is at bedside. At rest, he feels generally well. He does note left lower quadrant pain with movement -getting out of bed, moving in bed; walking, once he is up and upright, is reasonably comfortable. EXAM 118/75, 61, 16, 36.4, 90% room air He is alert, oriented. Nontoxic, no acute distress. Heart regular Respirations nonlabored Mild tenderness to palpation left lower quadrant. Palpation to the right of the midline is unremarkable. DATA Labs Hemoglobin 13.2, platelet count 247 Sodium 140, potassium 3.8, BUN 4, creatinine 0.93 AST 31, ALT 60, alkaline phosphatase 110 Micro C. difficile gene positive, C. difficile toxin negative IMPRESSION & PLAN Acute diverticulitis of the descending/sigmoid, with microperforation Afebrile, hemodynamically stable, improving from pain standpoint Continue IV antibiotics for time being, I do not think he is taking enough p.o. to tolerate addition of p.o. antibiotics Slowly advance diet and monitor Appreciate surgical consultation All the above discussed with patient and his who is at bedside Additional per resident documentation Subjective Pt is a 33 yo male with no significant past medical history who presents to the hospital on 04/25 for increasing abd pain with recent hosp in [place] for diverticulitis. Today, pt states he really feels no better or worse compared to yesterday. He states that his pain is still probably a 6/10. He states he has not had diarrhea since he met with us yesterday morning. Overall doing about the same as yesterday. Review of Systems Review of Systems: Constitutional: denies fever, chills, Cardio: denies chest pain, Resp: denies shortness of breath, GI: nausea, vomiting, Physical Exam Physical Exam: General:Alert and oriented, no acute distress, HEENT: Normocephalic, moist oral mucosa, Cardio: Regular rate and rhythm, no murmur, Resp:Lungs clear to auscultation b/l, no wheezes or rhonchi, GI: Soft, nondistended, bowel sounds hyperactive, LLQ still exquisitely tender to palpation as much as yesterday Skin: Warm, pink, dry, Psych: Mood-affect congruence. Results & Data Results & Data Vital Signs (Past 12 Hours) Vital Signs Temp Pulse Resp BP Pulse Ox O2 Del Method 04/27/23 21:40 36.4 C L 73 16 156/97 H 98 Room Air Resident Activity Tracking Resident Involvement: Resident Care Provided Care Provided: Adult Hospital Medicine
[2023-04-28] MEDS: LACTATED RINGER'S 1,000 ML IV SCH ×2 (07:21→16:26)
[2023-04-28 08:17] LABS: Basophils # (auto) 0.05 K/uL (0.00-0.20); Eosinophils # (auto) 0.28 K/uL (0.00-0.50); Eosinophils % (auto) 5.6 %; Hematocrit (blood only) 38.9 % (42.0-52.0); Hemoglobin 13.2 g/dl (14.0-18.0); Immature Granulocytes # (auto) 0.02 K/uL (0.01-0.20); Immature Granulocytes % (auto) 0.4 %; Lymphocytes # (auto) 0.93 K/uL (1.20-3.40); Lymphocytes % (auto) 18.7 %; Mean Corpuscular Hemoglobin 32.4 pg (25.0-34.0); Mean Corpuscular Hgb Conc 33.9 g/dL (32.0-36.0); Mean Corpuscular Volume 95.3 fL (80.0-100.0); Monocytes # (auto) 0.51 K/uL (0.11-0.59); Monocytes % (auto) 10.2 %; Neutrophils # (auto) 3.19 K/uL (1.40-6.50); Neutrophils % (auto) 64.1 %; Platelet Count 247 K/uL (130-400); RDW Coefficient of Variation 11.9 % (11.5-14.5); RDW Standard Deviation 41.1 fL (36.4-46.3); Red Blood Count 4.08 M/uL (4.70-6.10); White Blood Count 4.98 K/ul (4.8-10.8)
[2023-04-28 08:37] LABS: Albumin Globulin Ratio 1.3 (0.9-2); Albumin Level 3.6 gm/dl (3.4-5.0); BUN Creatinine Ratio 4.3 (10-20); Bilirubin,Total 0.5 mg/dl (0.2-1.0); Calcium 8.9 mg/dl (8.6-10.3); Creatinine Clr Calc Pharmacy 114.5 ml/min; Est GFR (African American) 122.8 ml/min; Globulin 2.7 gm/dl (2.5-4.0); Potassium 3.8 mmol/L (3.5-5.1); Total Protein 6.3 gm/dl (6.0-8.3)
[2023-04-28] MEDS: NICOTINE 21 MG/24 HR TDSY TD SCH (09:02)
--- NOTE | 2023-04-28 10:17 | Surgery Progress Note ---
Date of Service April 28, 2023 Assessment & Plan (1) Diverticulitis of colon with perforation: Plan: Advance to full liquids Remains without leukocytosis or fever Continue his IV anti-biotics He is slowly improving however still has pain If he tolerates his full liquids he can likely be discharged later today or tomorrow Admission and Anticipated Discharge Date Admission Date: April 25, 2023 Subjective Patient seen and examined. Feels similar to yesterday. Afebrile. Review of Systems Constitutional: no fever and no chills Physical Exam Constitutional: WD/WN, vitals as above Gastrointestinal (Abdomen): Inspection/Auscultation: abdomen normal to inspection; abdomen not distended Percussion/Palpation: + abdomen tender (Left-sided) and abdomen soft; no guarding and no hernia Results & Data Vital Signs (Past 12 Hours) Vital Signs Temp Pulse Resp BP Pulse Ox O2 Del Method 04/28/23 07:31 36.5 C 61 16 121/81 93 Room Air PG Care Time/CCT Total # of Minutes Spent Total Time Spent with Patient: Total time spent is greater than 50% in coordination of care (as documented) at patient's floor/unit and/or counseling patient: Coding Level of Care Code 73657 SUB INP/OBS CARE 07/20MIN Diagnoses Diverticulitis of colon with perforation K57.20
[2023-04-29] MEDS: ACETAMINOPHEN 1,000 MG/100 ML VIAL IV SCH ×3 (01:41→18:17)
[2023-04-29] MEDS: LACTATED RINGER'S 1,000 ML IV SCH ×3 (01:41→18:17)
[2023-04-29] MEDS: AMPICILLIN/SULBACTAM SOD 3,000 MG in SODIUM CHLOR 0.9% MINI-B 100 ML IV SCH ×2 (04:18→10:01)
[2023-04-29] MEDS: HYDROmorphone INJ 1 MG/ML SYRINGE IV PRN ×3 (05:29→18:18)
--- NOTE | 2023-04-29 07:01 | Hospitalist Progress Note ---
Date of Service April 29, 2023 Assessment & Plan (1) Diverticulitis of colon with perforation: (2) Transaminitis: Plan Pt is a 33 yo male with no significant past medical history who presents to the hospital on 04/25 for increasing abd pain with recent hosp in [place] for diverticulitis. #Acute recurrent/incompletely treated diverticulitis with microperforation - pt recently at [place] for diverticulitis and tx with zosyn -> d/c'ed on Levaquin/Flagyl, now with abd pain since Monday CT shows acute diverticulitis with small foci ipsilateral gas consistent with microperforation - surg consult appreciated; no surg interventions at this time - will transition pain medication to oxycodone po with dilaudid for breakthrough, continue tylenol - will switch to Augmentin today and advance diet to low fat diet #Transaminitis, improving Mild transaminitis of 70/89 on admission, pt denies binge drinking behaviors or excessive tylenol use, liver appears wnl on CT - likely reactive to active infection, as it continues to improve trend CMP daily #Diarrhea, resolved - had watery, nonbloody diarrhea, stools now soft - c diff gene + but toxin negative DVT prophylaxis: Low risk, SCDs/ambulate Diet: N.p.o. CODE STATUS: Full Admission and Anticipated Discharge Date Admission Date: April 25, 2023 Supervising Physician Co-Signing Physician Notes ATTESTATION I also saw the patient and confirmed quiroz portions of the history and exam. I agree with the impression and plan in the resident documentation, and as summarized below. His pain was up-and-down yesterday; he felt okay after eating, improved after a bowel movement, but some increased pain yesterday evening, and he also required a dose of Dilaudid earlier this morning. EXAM 126/79, 68, 16, 36.5, 96% on room air He is alert, oriented. Nontoxic, no acute distress. Similar to yesterday, very mild tenderness predominately left lower quadrant DATA Labs WBC 4.72, hemoglobin 13.4 Sodium 140, potassium 4.1, BUN 5, creatinine 1.0 AST 31, ALT 60, alkaline phosphatase 110 Micro C. difficile gene positive, C. difficile toxin negative IMPRESSION & PLAN Acute diverticulitis of the descending/sigmoid, with microperforation Afebrile, hemodynamically stable, improving from pain standpoint; some ups and downs, but overall think continued progression towards improvement Switch to p.o. antibiotics to assure tolerability Advance diet Appreciate surgical consultation Additional per resident documentation Subjective Pt is a 33 yo male with no significant past medical history who presents to the hospital on 04/25 for increasing abd pain with recent hosp in [place] for diverticulitis. Today, pt states he feels about the same as yesterday once again with being in 6/10 pain. He states he had a bowel movement yesterday that was soft but not watery as it had been before and passed gas and for a short time after that he felt much better, like a 3-4/10 pain. He states he has progressively gone back up to a 6/10 once again. Still tolerating intake. Review of Systems Review of Systems: Constitutional: denies fever, chills, Cardio: denies chest pain, Resp: denies shortness of breath, Physical Exam Physical Exam: General:Alert and oriented, no acute distress, HEENT: Normocephalic, moist oral mucosa, Cardio: Regular rate and rhythm, no murmur, Resp:Lungs clear to auscultation b/l, no wheezes or rhonchi, GI: Soft, nondistended, bowel sounds hyperactive, LLQ still exquisitely tender to palpation, unchanged from yesterday Skin: Warm, pink, dry, Psych: Mood-affect congruence. Results & Data Results & Data Vital Signs (Past 12 Hours) Vital Signs Temp Pulse Resp BP Pulse Ox O2 Del Method 04/28/23 20:00 36.8 C 62 16 143/88 H 99 Room Air Resident Activity Tracking Resident Involvement: Resident Care Provided Care Provided: Adult Hospital Medicine
[2023-04-29 07:27] LABS: Basophils # (auto) 0.04 K/uL (0.00-0.20); Basophils % (auto) 0.8 %; Eosinophils # (auto) 0.23 K/uL (0.00-0.50); Eosinophils % (auto) 4.9 %; Hematocrit (blood only) 38.5 % (42.0-52.0); Hemoglobin 13.4 g/dl (14.0-18.0); Immature Granulocytes # (auto) 0.02 K/uL (0.01-0.20); Immature Granulocytes % (auto) 0.4 %; Lymphocytes # (auto) 0.83 K/uL (1.20-3.40); Lymphocytes % (auto) 17.6 %; Mean Corpuscular Hemoglobin 32.7 pg (25.0-34.0); Mean Corpuscular Hgb Conc 34.8 g/dL (32.0-36.0); Mean Corpuscular Volume 93.9 fL (80.0-100.0); Monocytes # (auto) 0.49 K/uL (0.11-0.59); Monocytes % (auto) 10.4 %; Neutrophils # (auto) 3.11 K/uL (1.40-6.50); Neutrophils % (auto) 65.9 %; Platelet Count 291 K/uL (130-400); RDW Coefficient of Variation 11.6 % (11.5-14.5); RDW Standard Deviation 39.5 fL (36.4-46.3); White Blood Count 4.72 K/ul (4.8-10.8)
[2023-04-29 08:00] LABS: Albumin Globulin Ratio 1.3 (0.9-2); Albumin Level 3.7 gm/dl (3.4-5.0); Bilirubin,Total 0.4 mg/dl (0.2-1.0); Calcium 9.1 mg/dl (8.6-10.3); Creatinine Clr Calc Pharmacy 106.5 ml/min; Est GFR (African American) 112.5 ml/min; Est GFR (Non-African American) 97.1 ml/min; Globulin 2.8 gm/dl (2.5-4.0); Potassium 4.1 mmol/L (3.5-5.1); Total Protein 6.5 gm/dl (6.0-8.3)
[2023-04-29] MEDS: NICOTINE 21 MG/24 HR TDSY TD SCH (08:28)
--- NOTE | 2023-04-29 12:48 | Surgery Progress Note ---
Date of Service April 29, 2023 Assessment & Plan (1) Diverticulitis of colon with perforation: Plan: Continues to slowly improve but has persistent discomfort/ pain. Normal wbc ct, stable clinical exam. Will advance diet. Keep in house today. Admission and Anticipated Discharge Date Admission Date: April 25, 2023 Subjective Still with left sided abdominal pain, constant but worse with shifts in position, 6/10 in intensity. No nausea or vomiting. Tolerating full liquid diet. Hungry for more. Having bowel movements/ flatus. Physical Exam Constitutional: WD/WN, vitals as above Respiratory: normal respiratory effort, lungs clear to auscultation Cardiovascular: RRR, no murmur, no edema Gastrointestinal (Abdomen): Inspection/Auscultation: abdomen normal to inspection and normal bowel sounds; abdomen not distended Percussion/Palpation: + abdomen tender (left lower quadrant/ pelvic region) and abdomen soft; no hepatosplenomegaly Neurologic: awake; no focal motor deficits Results & Data Vital Signs (Past 12 Hours) Vital Signs Temp Pulse Resp BP Pulse Ox O2 Del Method 04/29/23 07:17 36.5 C 68 16 126/79 96 Room Air Laboratory Results Abnormal lab results 04/29/23 Range/Units 06:45 WBC 4.72 L (4.8-10.8) K/ul RBC 4.10 L (4.70-6.10) M/uL Hgb 13.4 L (14.0-18.0) g/dl Hct 38.5 L (42.0-52.0) % Lymph # (Auto) 0.83 L (1.20-3.40) K/uL BUN 5 L (6-23) mg/dl BUN/Creatinine Ratio 5.0 L (10-20) Alkaline Phosphatase 107 H (34-104) U/L
[2023-04-29] MEDS: oxyCODONE HCL IR 5 MG TAB (IMMEDIATE RELEASE) PO PRN ×2 (15:07→21:19)
[2023-04-29] MEDS: AMOXICILLIN/CLAVULANATE 875 MG TAB PO SCH ×2 (15:07→19:47)
[2023-04-30] MEDS: LACTATED RINGER'S 1,000 ML IV SCH ×4 (01:16→18:41)
[2023-04-30] MEDS: ACETAMINOPHEN 1,000 MG/100 ML VIAL IV SCH ×2 (01:16→09:17)
[2023-04-30] MEDS: AMOXICILLIN/CLAVULANATE 875 MG TAB PO SCH ×3 (05:10→19:39)
[2023-04-30] MEDS: HYDROmorphone INJ 1 MG/ML SYRINGE IV PRN ×3 (05:11→18:43)
--- NOTE | 2023-04-30 06:54 | Hospitalist Progress Note ---
Date of Service April 30, 2023 Assessment & Plan (1) Diverticulitis of colon with perforation: (2) Transaminitis: Plan Pt is a 33 yo male with no significant past medical history who presents to the hospital on 04/25 for increasing abd pain with recent hosp in [place] for diverticulitis. #Acute recurrent/incompletely treated diverticulitis with microperforation - pt recently at [place] for diverticulitis and tx with zosyn -> d/c'ed on Levaquin/Flagyl, now with abd pain since Monday CT shows acute diverticulitis with small foci ipsilateral gas consistent with microperforation - surg consult appreciated; no surg interventions at this time - continue oxycodone po with dilaudid for breakthrough, continue tylenol - continue Augmentin today and low fat diet - will continue IVF and will do CT abd today since pt pain not improving #Transaminitis, improving Mild transaminitis of 70/89 on admission, pt denies binge drinking behaviors or excessive tylenol use, liver appears wnl on CT - likely reactive to active infection, as it continues to improve trend CMP daily DVT prophylaxis: Low risk, SCDs/ambulate Diet: N.p.o. CODE STATUS: Full Admission and Anticipated Discharge Date Admission Date: April 25, 2023 Supervising Physician Co-Signing Physician Notes ATTESTATION I also saw the patient and confirmed quiroz portions of the history and exam. I agree with the impression and plan in the resident documentation, and as summarized below. Little bit more pain today, and certainly seems to be a little more tender with my palpation. EXAM 114/73, 65, 16, 36.5, 90% room air He is alert, oriented. Nontoxic, no acute distress. Pain in the left mid to lower quadrant, seems increased compared to yesterday. No rebound or guarding. Abdomen soft and nontender otherwise. DATA Labs WBC 4.33, hemoglobin 13.6 CMP unremarkable Imaging A CT with IV contrast today demonstrates interval mild decrease of diverticulitis; no evidence of abscess in the previous lead noted tiny focus of presumed microabscess on initial exam. Micro C. difficile gene positive, C. difficile toxin negative IMPRESSION & PLAN Acute diverticulitis of the descending/sigmoid, with microperforation Remains afebrile and hemodynamically stable Seem to have a bit more tenderness upon exam today so we repeated imaging; this is reassuring, slight improvement, but more important no interval development of abscess Continue Augmentin Continue pain management Advance diet Appreciate surgical consultation Will follow require extended course of antibiotics and will need follow-up with gastroenterology for possible colonoscopy Potentially discharge in am Additional per resident documentation Subjective Pt is a 33 yo male with no significant past medical history who presents to the hospital on 04/25 for increasing abd pain with recent hosp in [place] for diverticulitis. Today, pt states that he still feels about the same, 6/10 pain. He states that he has no nausea or vomiting with the advancement in diet, just that he has the persistent pain. He has not had a BM since yesterday. Review of Systems Review of Systems: Constitutional: denies fever, chills, Cardio: denies chest pain, Resp: denies shortness of breath, Physical Exam Physical Exam: General:Alert and oriented, no acute distress, HEENT: Normocephalic, moist oral mucosa, Cardio: Regular rate and rhythm, no murmur, Resp:Lungs clear to auscultation b/l, no wheezes or rhonchi, GI: Soft but slightly more firm than yesterday, nondistended, bowel sounds hyperactive, LLQ still exquisitely tender to palpation, unchanged from yesterday Skin: Warm, pink, dry, Psych: Mood-affect congruence. Results & Data Results & Data Vital Signs (Past 12 Hours) Vital Signs Temp Pulse Resp BP Pulse Ox O2 Del Method 04/29/23 21:15 36.5 C 56 L 16 161/99 H 98 Room Air Resident Activity Tracking Resident Involvement: Resident Care Provided Care Provided: Adult Hospital Medicine
[2023-04-30 07:17] LABS: Basophils # (auto) 0.05 K/uL (0.00-0.20); Basophils % (auto) 1.2 %; Eosinophils # (auto) 0.21 K/uL (0.00-0.50); Eosinophils % (auto) 4.8 %; Hematocrit (blood only) 38.9 % (42.0-52.0); Hemoglobin 13.6 g/dl (14.0-18.0); Immature Granulocytes # (auto) 0.01 K/uL (0.01-0.20); Immature Granulocytes % (auto) 0.2 %; Lymphocytes # (auto) 0.84 K/uL (1.20-3.40); Lymphocytes % (auto) 19.4 %; Mean Corpuscular Hemoglobin 32.2 pg (25.0-34.0); Mean Corpuscular Volume 92.2 fL (80.0-100.0); Mean Platelet Volume 9.7 fL (9.4-12.4); Monocytes # (auto) 0.45 K/uL (0.11-0.59); Monocytes % (auto) 10.4 %; Neutrophils # (auto) 2.77 K/uL (1.40-6.50); Platelet Count 319 K/uL (130-400); RDW Coefficient of Variation 11.6 % (11.5-14.5); RDW Standard Deviation 39.7 fL (36.4-46.3); Red Blood Count 4.22 M/uL (4.70-6.10); White Blood Count 4.33 K/ul (4.8-10.8)
[2023-04-30 07:59] LABS: Albumin Globulin Ratio 1.3 (0.9-2); Albumin Level 3.7 gm/dl (3.4-5.0); BUN Creatinine Ratio 7.5 (10-20); Bilirubin,Total 0.4 mg/dl (0.2-1.0); Creatinine Clr Calc Pharmacy 100.4 ml/min; Est GFR (African American) 104.9 ml/min; Est GFR (Non-African American) 90.5 ml/min; Globulin 2.9 gm/dl (2.5-4.0); Potassium 3.9 mmol/L (3.5-5.1); Total Protein 6.6 gm/dl (6.0-8.3)
[2023-04-30] MEDS ORDERED: POLYETHYLENE (MIRALAX) 17 GM PACK PO PRN (08:58)
[2023-04-30] MEDS: NICOTINE 21 MG/24 HR TDSY TD SCH (09:16)
[2023-04-30] MEDS: oxyCODONE HCL IR 5 MG TAB (IMMEDIATE RELEASE) PO PRN ×3 (09:23→21:48)
[2023-04-30] MEDS ORDERED: OPTIRAY 320 100ml IV ONE (11:25)
--- NOTE | 2023-04-30 11:47 | Surgery Progress Note ---
Date of Service April 30, 2023 Assessment & Plan (1) Diverticulitis of colon with perforation: Plan: Continues to slowly improve but has persistent discomfort/ pain. Normal wbc ct, stable clinical exam. Discussed with medicine. We will repeat CT scan today to assess for potential abscess formation. Admission and Anticipated Discharge Date Admission Date: April 25, 2023 Subjective He continues to have fairly significant pain in the left lower quadrant today. Denies nausea or vomiting. No fevers. Physical Exam Constitutional: WD/WN, vitals as above Gastrointestinal (Abdomen): Inspection/Auscultation: abdomen normal to inspection and normal bowel sounds; abdomen not distended Percussion/Palpation: + abdomen tender (left lower quadrant/ pelvic region) and abdomen soft; no hepatosplenomegaly Neurologic: awake; no focal motor deficits Results & Data Vital Signs (Past 12 Hours) Vital Signs Temp Pulse Resp BP Pulse Ox O2 Del Method 04/30/23 07:08 36.5 C 65 16 114/73 96 Room Air
--- NOTE | 2023-04-30 12:13 | CT Scan Report ---
CT abd pelvis IV con only CLINICAL HISTORY: Diverticulitis, pain not improving TECHNIQUE: Helical axial images of the abdomen and pelvis were obtained and displayed. Automated dose lowering techniques and/or adjustment according to patient size were utilized for this exam. This e xam was performed with intravenous contrast. CT DOSE: 1010.41 mGy.cm COMPARISON: Comparison is made to CT abdomen pelvis 04/25/2023 FINDINGS: Lower chest: Bibasilar atelectasis versus scarring is seen. Transvaginal pleural effusion. Liver: Unremarkable. No focal lesions are seen. Gallbladder and biliary tree: Patient is status post cholecystectomy. No intra- or extrahepatic bilia ry ductal dilation. Pancreas: Unremarkable, no focal lesions. Spleen: Unremarkable. Adrenals: Unremarkable. Kidneys and ureters: Unremarkable. Bladder: Unremarkable. Reproductive organs: Unremarkable. Bowel: Mild bowel wall thickening and fat stranding is seen in the descending and proximal sigmoid co ray. Extent of disease is stable to minimally improved from prior exam. Patient is status post append ectomy. Lymph nodes Retroperitoneal: Unremarkable. Pelvic: Unremarkable. Mesenteric: Unremarkable. Peritoneum: Fat stranding is seen about the descending and sigmoid colon, slightly improved from prio r exam. No drainable fluid collections are seen. Previously noted extraluminal gas is not well seen o n today's exam. Vessels: Unremarkable. Abdominal wall: Unremarkable. Bones: Unremarkable. IMPRESSION: Interval mild decrease in conspicuity of diverticulitis with remaining wall thickening and fat strand ing about the mid descending and proximal sigmoid colon. Of note, there is no evidence of abscess in previously noted tiny focus of extraluminal gas is no longer seen. ACT 112: Negative or not required by law. Electronically signed by: Lui Howell M.D. 04/30/2023 12:10 PM
[2023-05-01] MEDS: LACTATED RINGER'S 1,000 ML IV SCH ×2 (02:14→06:31)
[2023-05-01] MEDS: HYDROmorphone INJ 1 MG/ML SYRINGE IV PRN ×3 (05:01→22:01)
[2023-05-01] MEDS: AMOXICILLIN/CLAVULANATE 875 MG TAB PO SCH ×3 (05:01→20:03)
[2023-05-01 06:50] LABS: Basophils # (auto) 0.05 K/uL (0.00-0.20); Eosinophils # (auto) 0.18 K/uL (0.00-0.50); Eosinophils % (auto) 3.5 %; Hematocrit (blood only) 40.3 % (42.0-52.0); Immature Granulocytes # (auto) 0.01 K/uL (0.01-0.20); Immature Granulocytes % (auto) 0.2 %; Lymphocytes # (auto) 0.86 K/uL (1.20-3.40); Lymphocytes % (auto) 16.5 %; Mean Corpuscular Hemoglobin 32.1 pg (25.0-34.0); Mean Corpuscular Hgb Conc 34.7 g/dL (32.0-36.0); Mean Corpuscular Volume 92.4 fL (80.0-100.0); Mean Platelet Volume 9.4 fL (9.4-12.4); Monocytes # (auto) 0.53 K/uL (0.11-0.59); Monocytes % (auto) 10.2 %; Neutrophils # (auto) 3.58 K/uL (1.40-6.50); Neutrophils % (auto) 68.6 %; Platelet Count 306 K/uL (130-400); RDW Coefficient of Variation 11.4 % (11.5-14.5); RDW Standard Deviation 38.9 fL (36.4-46.3); Red Blood Count 4.36 M/uL (4.70-6.10); White Blood Count 5.21 K/ul (4.8-10.8)
--- NOTE | 2023-05-01 07:06 | Hospitalist Progress Note ---
Date of Service May 01, 2023 Assessment & Plan (1) Diverticulitis of colon with perforation: (2) Transaminitis: Plan Pt is a 33 yo male with no significant past medical history who presents to the hospital on 04/25 for increasing abd pain with recent hosp in [place] for diverticulitis. #Acute recurrent/incompletely treated diverticulitis with microperforation - pt recently at [place] for diverticulitis and tx with zosyn -> d/c'ed on Levaquin/Flagyl, now with abd pain since Monday CT shows acute diverticulitis with small foci ipsilateral gas consistent with microperforation - surg consult appreciated; no surg interventions at this time - continue oxycodone po with dilaudid for breakthrough, continue tylenol - continue Augmentin today and low fat diet - CT abd yesterday showed improvement of diverticulitis without abscess #Transaminitis, improving Mild transaminitis of 70/89 on admission, pt denies binge drinking behaviors or excessive tylenol use, liver appears wnl on CT - likely reactive to active infection, as it continues to improve trend CMP daily DVT prophylaxis: Low risk, SCDs/ambulate Diet: N.p.o. CODE STATUS: Full Admission and Anticipated Discharge Date Admission Date: April 25, 2023 Supervising Physician Co-Signing Physician Notes I personally examined the patient and verified all quiroz points of history and exam, discussed case, and agree with decision making with Dr Johnson Feelchristie about the same. Pain about the same. Feels more confident with the idea of going home tomorrow. vitals noted nad heent nc at mmm abd soft nd LLQ tender no rigidity breathing unlabored no accessory muscles good effort skin no rashes no pallor or icterus diverticulitis w microperforation -improving. on PO abx. given his improvement -> rebound/relapse he is understandably reticent, at the same time he has now been on PO abx ~3 days with stability clinically and radiographic improvement. hopefully home tomorrow Subjective Pt is a 33 yo male with no significant past medical history who presents to the hospital on 04/25 for increasing abd pain with recent hosp in [place] for diverticulitis. Today, pt states that his pain has been a 6/10 still today, although he is still tolerating oral intake without issues. He states he is worried about going home and having pain that is not controlled since he has been just as painful the last few days as he is today. Ultimately, he states he would feel more comfortable seeing how he feels tomorrow before deciding to go home or not. No further questions or complaints at this time. Review of Systems Review of Systems: Constitutional: denies fever, chills, Cardio: denies chest pain, Resp: denies shortness of breath, Physical Exam Physical Exam: General:Alert and oriented, no acute distress, HEENT: Normocephalic, moist oral mucosa, Cardio: Regular rate and rhythm, no murmur, Resp:Lungs clear to auscultation b/l, no wheezes or rhonchi, GI: Soft, nondistended, bowel sounds hyperactive, LLQ cloth mercerizer back tender to palpation, Skin: Warm, pink, dry, Psych: Mood-affect congruence. Results & Data Results & Data Vital Signs (Past 12 Hours) Vital Signs Temp Pulse Resp BP Pulse Ox O2 Del Method 04/30/23 19:38 36.7 C 83 18 133/85 97 Room Air Resident Activity Tracking Resident Involvement: Resident Care Provided Care Provided: Adult Hospital Medicine
[2023-05-01 07:16] LABS: Albumin Globulin Ratio 1.4 (0.9-2); Albumin Level 3.9 gm/dl (3.4-5.0); BUN Creatinine Ratio 8.7 (10-20); Bilirubin,Total 0.4 mg/dl (0.2-1.0); Calcium 9.1 mg/dl (8.6-10.3); Creatinine Clr Calc Pharmacy 103.4 ml/min; Est GFR (African American) 108.6 ml/min; Est GFR (Non-African American) 93.7 ml/min; Globulin 2.8 gm/dl (2.5-4.0); Total Protein 6.7 gm/dl (6.0-8.3)
[2023-05-01] MEDS: NICOTINE 21 MG/24 HR TDSY TD SCH (08:22)
[2023-05-01] MEDS: oxyCODONE HCL IR 5 MG TAB (IMMEDIATE RELEASE) PO PRN ×3 (09:39→20:03)
--- NOTE | 2023-05-01 10:49 | Surgery Progress Note ---
Date of Service May 01, 2023 Assessment & Plan (1) Diverticulitis of colon with perforation: Plan: Patient reports still having LLQ pain 6/10 pain medication is helping Passing flatus and having BMs Tolerating Low fiber diet Denies n/V VSS WBC wnl continue PO antibx patient reports possible d/c tomorrow Doing well from a surgical standpoint Admission and Anticipated Discharge Date Admission Date: April 25, 2023 Supervising Physician Co-Signing Physician Notes I personally saw and evaluated the patient with Darlyn CLAYTON and agree with the assessment and plan. 33-year-old male with resolving diverticulitis His CT imaging results from yesterday were personally viewed and interpreted by myself, improved from admission He is tolerating a low fiber diet and has no leukocytosis and is afebrile He can be discharged from a surgical standpoint Surgery will sign off at this time, please call with any questions or concerns Subjective Patient reports still having LLQ pain 6/10 pain medication is helping Passing flatus and having BMs Tolerating Low fiber diet Denies n/V Review of Systems Constitutional: no fever and no chills Respiratory: no dyspnea Cardiovascular: + chest pain Gastrointestinal: + abdominal pain; no nausea and no vomit ing Physical Exam Constitutional: well developed, cooperative and comfortable; no acute distress Respiratory: normal respiratory effort and able to speak in complete sentences; no respiratory distress Cardiovascular: Rate/Rhythm: regular rate Gastrointestinal (Abdomen): Inspection/Auscultation: + abdominal surgical scar; abdomen not distended Percussion/Palpation: + abdomen tender (TTP LLQ ) and abdomen soft; no guarding Results & Data Vital Signs (Past 12 Hours) Vital Signs Temp Pulse Resp BP Pulse Ox O2 Del Method 05/01/23 07:08 97.7 F 66 16 128/79 96 Room Air PG Care Time/CCT Total # of Minutes Spent Total Time Spent with Patient: Total time spent is greater than 50% in coordination of care (as documented) at patient's floor/unit and/or counseling patient: Coding Level of Care Code 46942 SUB INP/OBS CARE 07/20MIN Diagnoses Diverticulitis of colon with perforation K57.20
--- NOTE | 2023-05-01 18:40 | Billing Data ---
Date of Service May 01, 2023 Coding Level of Care Code 44981 SUB INP/OBS CARE
[2023-05-02] MEDS: AMOXICILLIN/CLAVULANATE 875 MG TAB PO SCH ×2 (05:14→12:16)
[2023-05-02] MEDS: oxyCODONE HCL IR 5 MG TAB (IMMEDIATE RELEASE) PO PRN ×3 (05:16→14:37)
[2023-05-02 07:09] LABS: Basophils # (auto) 0.05 K/uL (0.00-0.20); Basophils % (auto) 0.9 %; Eosinophils % (auto) 3.7 %; Hematocrit (blood only) 42.1 % (42.0-52.0); Hemoglobin 14.9 g/dl (14.0-18.0); Immature Granulocytes # (auto) 0.01 K/uL (0.01-0.20); Immature Granulocytes % (auto) 0.2 %; Lymphocytes # (auto) 0.97 K/uL (1.20-3.40); Lymphocytes % (auto) 17.8 %; Mean Corpuscular Hgb Conc 35.4 g/dL (32.0-36.0); Mean Corpuscular Volume 93.1 fL (80.0-100.0); Mean Platelet Volume 9.4 fL (9.4-12.4); Monocytes # (auto) 0.66 K/uL (0.11-0.59); Monocytes % (auto) 12.1 %; Neutrophils # (auto) 3.56 K/uL (1.40-6.50); Neutrophils % (auto) 65.3 %; Platelet Count 306 K/uL (130-400); RDW Coefficient of Variation 11.7 % (11.5-14.5); Red Blood Count 4.52 M/uL (4.70-6.10); White Blood Count 5.45 K/ul (4.8-10.8)
[2023-05-02 07:55] LABS: Albumin Globulin Ratio 1.4 (0.9-2); Albumin Level 4.2 gm/dl (3.4-5.0); BUN Creatinine Ratio 10.2 (10-20); Bilirubin,Total 0.4 mg/dl (0.2-1.0); Calcium 9.5 mg/dl (8.6-10.3); Creatinine Clr Calc Pharmacy 90.2 ml/min; Est GFR (African American) 92.1 ml/min; Est GFR (Non-African American) 79.5 ml/min; Globulin 3.1 gm/dl (2.5-4.0); Total Protein 7.3 gm/dl (6.0-8.3)
--- NOTE | 2023-05-02 08:18 | Hospitalist Progress Note ---
Date of Service May 02, 2023 Assessment & Plan (1) Diverticulitis of colon with perforation: (2) Transaminitis: Plan Blu Costa is a 33 year-old male with no significant past medical history who presents to the hospital on 04/25 for increasing abdominal pain with recent hospitalization in [place] for diverticulitis. Acute recurrent/incompletely treated diverticulitis with microperforation - pt recently at [place] for diverticulitis and tx with Zosyn -> d/c'ed on Levaquin/Flagyl, now with abdominal pain since Monday CT shows acute diverticulitis with small foci ipsilateral gas consistent with microperforation - Surg consult appreciated; no surgical interventions at this time - continue oxycodone po with Dilaudid for breakthrough, continue Tylenol - continue Augmentin today and low fat diet - CT abd yesterday showed improvement of diverticulitis without abscess Transaminitis, improving Mild transaminitis of 70/89 on admission, pt denies binge drinking behaviors or excessive tylenol use, liver appears wnl on CT - likely reactive to active infection, as it continues to improve trend CMP daily DVT prophylaxis: Low risk, SCDs/ambulate Diet: N.p.o. CODE STATUS: Full Admission and Anticipated Discharge Date Admission Date: April 25, 2023 Review of Systems Review of Systems: As per above Results & Data Results & Data Vital Signs (Past 12 Hours) Vital Signs Temp Pulse Resp BP Pulse Ox O2 Del Method 05/02/23 07:18 36.4 C L 65 18 110/71 96 Room Air 05/01/23 22:09 135/85 Resident Activity Tracking Resident Involvement: Resident Care Provided Care Provided: Adult Hospital Medicine
[2023-05-02] MEDS: NICOTINE 21 MG/24 HR TDSY TD SCH (09:05)
--- NOTE | 2023-05-02 16:16 | Discharge Summary ---
Date of Service May 02, 2023 Admission HPI Per Admitting Provider Blu is a 33-year-old man with a past medical history of SBO as a child, and recently with diverticulitis treated in [place] 1 week ago after 2-day inpatient stay with microperforation and subsequently discharged on oral antibiotics. Record review Repeat abdominal CT shows acute diverticulitis of mid to distal descending colon, tiny foci of intraperitoneal free air adjacent to the descending colon. This is/normal/at site of diverticulitis consistent with microperforation; patient reports this was present at [place]. No contralateral free air or abscess is appreciated. Patient was prescribed levofloxacin and Flagyl 10-day course on 04/07 which was completed 04/17 Transaminitis with normal-appearing liver on CT. Patient's only medication was antibiotics Levaquin/Flagyl. Will defer fluoroquinolone use due to rare incidence of hepatotoxicity. Patient is normotensive and presentation is not consistent with endorgan ischemia. Per patient Pt reports 2-3 weeks ago had abdominal pain, was seein in [place] and then admitting to [place] for diverticulitis with perforatin. Was dc/ed after 2 days with oral antibiotics. Took all abx as direct. N oabx allergies Last night pain recurrent, tried to go to work today and pain was much worse than last time and came in for re-evaluatin. No fevers, chills. 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 No nausea or vomiting NO chest pain or chest pressure. Currently abdominal pain is ~7-8/10 after morphine, was morphine earlier brought it down to a 4-5 from a 9 earlier this morning. NO pain at all 2 days ago, pain all started last night Last bowel movement was yesterday. No blood/melena. Formed/brown +Feeling of strong gas pain in low abdomen, has not been passing gas since yesterday. Last BM was ~12-1pm yesterday, flatus ~3pm then stopped. MEdHx/SHX: Endorses hx of bowel obstruction as a kid due to a 'bowel twisting.' Had surgery which corrected this at age 11. Then did nto remove any bowel 'just untwisted it' and took out the appendix and gallbladder. Procedure was performed at [facility]. 8 years ago had to have lysis of adhesions due to pain without SBO, gallbladder was removed at that time as well. Current pain is very different than either of those prior pains, and worse in intensity No other surgeries. No other medical problems No daily medicatins Has nto taken any OTC medicatins for pain EtoH 1-2 beers per day, 2x drinks last night. Denies binge drinking. Hasn't seen a PCP recently. Saw Nancy Willett in [place] several years ago, need s to re-establish. Medical History: Reviewed Medications: Reviewed Surgical History: Reviewed Family history: Reviewed Allergies: Reviewed Social History: Reviewed. ETOH 2 beer daily. Uses chew. Has been eatin ga lot of sunflower seeds to quit chew. Code Status: Full Code Admission Exam Per Admitting Provider General: A&Ox3. NAD. Cooperative. HEENT: Atraumatic, normocephalic. Vision and hearing grossly intact. PERLAA. Pulm: CTAB A&P. -wheezes, -rales, -rhonchi. Symmetrical chest rise. No increased work of breathing. No respiratory distress. Cardiac: RRR, -mrg. Radial pulses intact and symmetrical. Abdominal: Focally tender to left lower quadrant palpation. No rebound. No right-sided tenderness. Bowel sounds diminished. Ext: warm, dry. Sensation and strength grossly Principal Diagnosis recurrent diverticulitis Discharge Exam Constitutional WD/WN, vitals as above Eyes + anicteric sclerae; no conjunctival abnormality Respiratory normal respiratory effort; no respiratory distress and does not use accessory muscles Cardiovascular Rate/Rhythm: regular rate and regular rhythm Gastrointestinal (Abdomen) LLQ pain, abdomen soft and nondistended. Skin no rashes, warm and dry Psychiatric A+Ox3, euthymic affect Discharge Data Allergies Allergy/AdvReac Type Severity Reaction Status Date / Time No Known Allergies Allergy Unverified 11/20/17 15:41 Consultations 04/25/23 12:50 ED Decision to Admit Stat Ordered Studies 04/25/23 10:30 CT abd pelvis IV con only Stat 04/30/23 11:00 CT abd pelvis IV con only Urgent Abdomen/Pelvis CT 04/25/23 10:30 CT SCAN OF THE ABDOMEN AND PELVIS WITH IV CONTRAST CLINICAL HISTORY: Left lower quadrant abdominal pain COMPARISON STUDY: No priors. TECHNIQUE: Following the IV administration of 93 cc of Optiray 320, CT scan of the abdomen and pelvis is performed from the lung bases to the proximal femora. Images are reviewed in the axial, sagittal, and coronal planes. IV contrast was administered without complication. A dose lowering technique was utilized adhering to the principles of ALARA. CT DOSE: 1076.48 mGy.cm FINDINGS: Lung bases: The heart is normal in size and without pericardial effusion. There is trace right pleural effusion and dependent atelectasis. There is a small hiatal hernia. Liver: The contrast-enhanced liver is normal in size, contour, and attenuation. There is no intrahepatic biliary ductal dilatation. The hepatic veins and portal veins are patent. Gallbladder: Surgically absent noting clips in the gallbladder fossa. Spleen: Normal in size and attenuation. Pancreas: Unremarkable. Adrenal glands: Unremarkable. Kidneys: The contrast enhanced kidneys are normal in size and without hydronephrosis. The kidneys enhance symmetrically. Abdominal vasculature: The abdominal aorta is normal in course and caliber. Bowel: There is mild to moderate colonic diverticulosis. There is wall thickening with pericolonic inflammation and fluid involving mid to distal descending colon consistent with acute diverticulitis. There are tiny foci of intraperitoneal free air adjacent to the descending colon at this site. No organized/drainable fluid collection is seen to indicate abscess. No bowel obstruction is seen. The appendix is not identified and reported surgically absent. Peritoneum: There are tiny foci of intraperitoneal free air adjacent to the left colon as discussed above. No additional foci of free air are seen below the diaphragm. There is trace free fluid in the pelvis. There is a fat-containing umbilical hernia. Lymphadenopathy: None. Pelvic viscera: The bladder, prostate, and seminal vesicles are normal as visualized. Skeletal structures: No lytic or blastic lesions are seen. IMPRESSION: 1. Acute diverticulitis of the mid to distal descending colon as above. 2. There are tiny foci of intraperitoneal free air adjacent to the descending colon. No organized/drainable fluid collection is seen to indicate abscess. 3. Trace right pleural effusion. 4. Additional findings as above. ACT 112: Negative or not required by law. Electronically signed by: Manuel Oviedo M.D. 04/25/2023 12:32 PM KUB X-Ray 04/26/23 09:00 KUB CLINICAL HISTORY: Generalized abdominal pain. No acute diverticulitis. FINDINGS: 2 AP, portable, supine abdominal radiographs are correlated with abdominal CT dated 04/25/2023. There is a nonobstructive abdominal bowel gas pattern. No evidence of intraperitoneal free air is seen on these supine images. Cholecystectomy clips are noted in the right upper quadrant. There are no abnormal abdominal calcifications. The bony structures appear intact. IMPRESSION: No acute abnormality is identified. Electronically signed by: Manuel Oviedo M.D. 04/26/2023 5:46 PM Abdomen/Pelvis CT 04/30/23 11:00 CT abd pelvis IV con only CLINICAL HISTORY: Diverticulitis, pain not improving TECHNIQUE: Helical axial images of the abdomen and pelvis were obtained and displayed. Automated dose lowering techniques and/or adjustment according to patient size were utilized for this exam. This exam was performed with intravenous contrast. CT DOSE: 1010.41 mGy.cm COMPARISON: Comparison is made to CT abdomen pelvis 04/25/2023 FINDINGS: Lower chest: Bibasilar atelectasis versus scarring is seen. Transvaginal pleural effusion. Liver: Unremarkable. No focal lesions are seen. Gallbladder and biliary tree: Patient is status post cholecystectomy. No intra- or extrahepatic biliary ductal dilation. Pancreas: Unremarkable, no focal lesions. Spleen: Unremarkable. Adrenals: Unremarkable. Kidneys and ureters: Unremarkable. Bladder: Unremarkable. Reproductive organs: Unremarkable. Bowel: Mild bowel wall thickening and fat stranding is seen in the descending and proximal sigmoid colon. Extent of disease is stable to minimally improved from prior exam. Patient is status post appendectomy. Lymph nodes Retroperitoneal: Unremarkable. Pelvic: Unremarkable. Mesenteric: Unremarkable. Peritoneum: Fat stranding is seen about the descending and sigmoid colon, slightly improved from prior exam. No drainable fluid collections are seen. Previously noted extraluminal gas is not well seen on today's exam. Vessels: Unremarkable. Abdominal wall: Unremarkable. Bones: Unremarkable. IMPRESSION: Interval mild decrease in conspicuity of diverticulitis with remaining wall thickening and fat stranding about the mid descending and proximal sigmoid colon. Of note, there is no evidence of abscess in previously noted tiny focus of extraluminal gas is no longer seen. ACT 112: Negative or not required by law. Electronically signed by: Lui Howell M.D. 04/30/2023 12:10 PM Hospital Course (1) Left lower quadrant abdominal pain: (2) Diverticulitis of colon with perforation: (3) Transaminitis: Plan Pt is a 33 yo male with no significant past medical history who presents to the hospital on 04/25 for increasing abd pain with recent hosp in [place] for diverticulitis. Acute recurrent/incompletely treated diverticulitis with microperforation Pt recently at [place] for diverticulitis and tx with zosyn -> d/c'ed on Levaquin/Flagyl, now with abd pain since Monday. CT shows acute diverticulitis with small foci ipsilateral gas consistent with microperforation. surg consulted, no surgical intervention indicated. CT abdomen later on admission showed improvement of diverticulitis without abscess. Pain management with oxycodone, Tylenol. Sent with prescription for 14 days of Augmentin. Advised patient to keep close follow up with PCP, if abdominal pain failing to improve in the next week- could consider repeat CT abdomen as outpatient. Transaminitis, improving Mild transaminitis of 70/89 on admission, pt denies binge drinking behaviors or excessive tylenol use, liver appears wnl on CT. likely reactive to active infection, as it continues to improve. Consider repeating CMP as outpatient to monitor trend. Total Time Total Time Spent Total Time Spent (In Minutes): . <30 Discharge Plan Discharge Items Patient Disposition: Home - Self-Care Reason For Visit: RECURRENT DIVERTICULITIS WITH MICROPERF Discharge Diagnosis: recurrent diverticulitis with microperf Activity: Per Instructions section Non-emergency contact: Primary Care Provider Call non-emergency contact if: you have any medication questions and your symptoms worsen Follow-up/Referrals: PCP,NO [Primary Care Provider] - Diet: Low Fiber Addtl Attending Provider Instructions: You were admitted to the hospital for recurrent diverticulitis with microperforation, we treated you with antibiotics and will discharge you with additional 2 weeks of antibiotic coverage. A discharge summary will be sent to your primary care physician to ensure continuity of care. Follow-up appointments: Make a follow-up appointment with your PCP within the next week. It is very important that you follow up with them shortly after discharge from the hospital. You may also require a repeat CT scan of your abdomen in the next few weeks to monitor your diverticulitis, please discuss this with your primary care doctor. Medications: Your medication list has been reviewed and reconciled upon discharge to ensure accuracy and continuity of care. An updated list of all your medications is included with your hospital discharge paperwork. Please review this list closely, and make note of any changes. We sent a new medication called Augmentin to your pharmacy. Take Augmentin 875mg 1 tablet twice daily for 14 days. We sent a new medication called Oxycodone to your pharmacy. Take Oxycodone 1 tablet every 4 hours as needed for pain relief, try to wean off of the oxycodone and switch to Tylenol as pain improves. CALL 911 OR GO TO THE EMERGENCY DEPARTMENT if you experience any of the following: Sudden, severe abdominal pain or nausea/vomiting Severe chest pain, or chest pain that radiates (moves) to your jaw or arm Sudden, severe shortness of breath or difficulty breathing Thank you for allowing us to participate in your care. Pending Studies at Discharge: No Stand-Alone Forms: My [facility], Smoking Cessation Medications and DC Order Prescriptions: New amoxicillin-pot clavulanate 875-125 mg Tablet 1 tab PO BID 14 Days Qty: 28 0RF oxycodone 5 mg tablet 5 mg PO Q6H PRN (Reason: pain) Qty: 14 0RF Discharge Orders: Discharge Order (Routine); Ordered 05/02/23 Ordered By: Tabatha Jackson Admission Data Admit Date/Time: 04/25/23 14:27 Attending Provider: Ivan Argueta Admit Provider: Rocael Stanley Primary Care Provider: PCP,NO Other Providers: Rocael Stanley; Pedro Ewing Other Interventions: Discharge Summary Assessment (RN) Last Done: 05/02/23 15:15 Supervising Physician Co-Signing Physician Notes I personally examined the patient and verified all quiroz points of history and exam, discussed case, and agree with decision making with Dr Jackson had a BM. pain maybe a little better, pain meds helping a bit more. vitals noted nad heent nc at mmm abd soft nd LLQ tender but less than yesterday no rigidity breathing unlabored no accessory muscles good effort skin no rashes no pallor or icterus diverticulitis w microperforation -improving. on PO abx. stable for home. sees PCP 05/04. anticipate prolonged course of abx overall, high likelihood of need for repeat CT scan. outpt PCP this week and surgical f/u if needed
--- NOTE | 2023-05-02 19:17 | Billing Data ---
Date of Service May 02, 2023 Coding Level of Care Code 26846 IN/OBS DISCH 30 MIN/LESS
--- NOTE | 2023-05-02 19:18 | Billing Data ---
Date of Service May 02, 2023 Coding Level of Care Code 18387 IN/OBS DISCH 30 MIN/LESS
== END 2023-05-02 15:39 | disposition home or self-care (01) | DRG 392 ==
LOC: ED 09:19 → SUATTDRO 14:27 → EDINP 14:27 → 3W 18:30